=== PATIENT | female | born 1940 | race Caucasian/White ===

== ENCOUNTER → 2024-06-12 | Outpatient (CLI) | payer MEDICARE, BC, SELFPAY ==
[2024-06-12 14:53] LABS: Alanine Aminotransferase 13 U/L (10-49); Albumin, Serum 4.4 gm/dL (3.4-4.8); Albumin/Globulin Ratio 2.3 (1.2-2.2); Alkaline Phosphatase 56 U/L (46-116); Anion Gap 12 (7-16); Aspartate Amino Transferase 19 U/L (0-34); BUN/Creatinine Ratio 25 Ratio (12-20); Bilirubin,Total 1.4 mg/dL (0.3-1.2); Blood Urea Nitrogen 20 mg/dL (9-23); Calcium 9.8 mg/dL (8.3-10.6); Calcium (Corrected) 9.8 mg/dL (8.5-10.1); Carbon Dioxide 26.2 mMol/L (20.0-31.0); Chloride 103 mMol/L (98-107); Creatinine (Component) 0.8 mg/dL (0.6-1.3); Globulin 1.9 gm/dL (2.3-3.5); Glucose 116 mg/dL (74-106); Osmolality,Calculated 284 (275-295); Potassium 4.1 mMol/L (3.4-5.1); Sodium 141 mMol/L (136-145); Total Protein 6.3 gm/dL (5.7-8.2); eGFR > 60 See Note
== END | disposition home or self-care (01) ==
LOC: COPL 13:46
PROVIDERS: PCP Physician Assistant; Referring Provider Internal Medicine; Visit Provider Internal Medicine
DX: M81.0 Age-related osteoporosis without current pathological fracture (principal)
CPT/HCPCS: 36415; 80053

== ENCOUNTER → 2024-07-26 | Outpatient (CLI) | payer MEDICARE, BC, SELFPAY ==
[2024-07-26 10:35] LABS: Basophils % (Auto) 1 % (0-2.5); Eosinophils # (Auto) 0.1 Thou/mm3 (0.0-0.5); Eosinophils % (Auto) 2 % (0-10); Hematocrit 41.3 % (36.0-46.0); Hemoglobin 13.7 g/dL (12.0-16.0); Immature Granulocytes % (Auto) 0 % (0-0); Lymphocytes # (Auto) 0.8 Thou/mm3 (1.0-4.8); Lymphocytes % (Auto) 22 % (10-50); Mean Corpuscular HGB Conc 33.2 g/dl (31.0-37.0); Mean Corpuscular Hemoglobin 31.1 pg (25.0-35.0); Mean Corpuscular Volume 94 fL (80-100); Monocytes # (Auto) 0.5 Thou/mm3 (0.0-0.8); Monocytes % (Auto) 12 % (0-12); Neutrophils # (Auto) 2.4 Thou/mm3 (1.8-7.7); Neutrophils % (Auto) 63 % (37-80); Nucleated Red Blood Cell % 0 /100 WBC (0); Platelet Count 298 Thou/mm3 (140-440); RDW Standard Deviation 44.4 fL (36.4-46.3); White Blood Count 3.8 Thou/mm3 (3.6-11.0)
[2024-07-26 10:48] LABS: Alanine Aminotransferase 10 U/L (10-49); Albumin, Serum 4.2 gm/dL (3.4-4.8); Alkaline Phosphatase 54 U/L (46-116); Anion Gap 7 (7-16); Aspartate Amino Transferase 18 U/L (0-34); BUN/Creatinine Ratio 15 Ratio (12-20); Blood Urea Nitrogen 12 mg/dL (9-23); Carbon Dioxide 28.5 mMol/L (20.0-31.0); Cardiac Risk Estimate 2.6 RATIO (3.7-5.6); Chloride 105 mMol/L (98-107); Cholesterol 236 mg/dL (132-200); Creatinine (Component) 0.8 mg/dL (0.6-1.3); Globulin 2.1 gm/dL (2.3-3.5); Glucose 102 mg/dL (74-106); HDL Cholesterol 91 mg/dL (40-60); LDL Cholesterol,Calculated 133 mg/dL (0-130); Osmolality,Calculated 279 (275-295); Potassium 4.7 mMol/L (3.4-5.1); Sodium 140 mMol/L (136-145); Thyroid Stimulating Hormone 0.35 uIU/mL (0.55-4.78); Total Protein 6.3 gm/dL (5.7-8.2); Triglycerides 61 mg/dL (30-150); eGFR > 60 See Note
[2024-07-26 11:24] LABS: Glucose Estimated Average 120 mg/dL (80-131); Hemoglobin A1C 5.8 % Hgb (4.8-6.0)
== END | disposition home or self-care (01) ==
LOC: COPL 09:31
PROVIDERS: PCP Physician Assistant; Referring Provider Physician Assistant; Visit Provider Physician Assistant
DX: E78.5 Hyperlipidemia, unspecified (principal); I10 Essential (primary) hypertension; F03.90 Unspecified dementia, unspecified severity, without behavioral disturbance, psychotic disturbance, mood disturbance, and anxiety
CPT/HCPCS: 36415; 80053; 80061; 83036; 84443; 85025

== ENCOUNTER 2024-08-28 14:04 | Inpatient (IN) | payer MEDICARE, BC, SELFPAY ==
[2024-08-28] VITALS (9 sets, daily range): BP systolic 122–138; BP diastolic 73–83; PULSE 55–71; RESP 16–95; TEMP 36.6–37.1; O2SAT 90–96; BMI 23.2; BMI 24.2; BMI 23.1
--- NOTE | 2024-08-28 | XR_ITS ---
Examination: MRI of brain without intravenous contrast. MRI brain with intravenous contrast. Date and time of exam:August 28, 2024 1753 hours INDICATIONS: Onset altered mental status today, abnormal edema in the left temporal lobe on CT brain scan today Technique: Multiple axial and sagittal images of the brain to been obtained. Siemens high-resolution 1.52 Brianna short bore scanner utilized. Sagittal sections, T1 weighted images, TR 500, TE 14, are performed. Axial sections proton-density and T2-weighted images have been obtained. Inversion recovery axial images, TR 9260, TE 111, TR 2500. Diffusion weighted images, axial sections, TR 4800, TE 128, B value 1000. Axial sections, ADC map, TR 4800, TE 128. Axial and coronal images were also obtained post 10 cc gadolinium administered intravenously. Findings:: Enlargement of the sella turcica is not present. The optic chiasm and infundibular stalk are not remarkable. There is no localized enlargement of the medulla or stephanie. Fourth ventricle and cerebellar tonsils appear normal in position. No subacute area of hemorrhage density is seen. Fourth ventricle is midline. Mass in the cerebellopontine angle region is not evident. 7th and 8th nerve complexes exhibit symmetry Globes are symmetrical Orbital musculature including medial lateral rectus muscles do not exhibit abnormality Increased white matter signal is evident, marked focal edema in the left temporal lobe Effacement of the cortical sulcal markings is not identified. Mass effect upon the ventricular system is not identified. Diffusion-weighted images demonstrate no focus of restricted diffusion Contrast images demonstrate 11 mm enhancing nidus in the left temporal lobe surrounded by prominent edema Also 5 mm enhancing focus in the right cerebellar hemisphere axial image 7 Impression: Enhancing foci in the left temporal lobe and right cerebellar hemisphere most consistent with metastatic disease
--- NOTE | 2024-08-28 14:29 | XR_ITS ---
Examination: AP chest single view Technique one AP portable upright chest single view Date and time: August 28, 2024 1442 hours Comparison March 03, 2014 INDICATION: Chest pain shortness of breath today. FINDINGS: Subsegmental atelectasis left base Increased opacity left base retrocardiac Normal heart size IMPRESSION: Suspicious for early left base pneumonia
--- NOTE | 2024-08-28 14:29 | XR_ITS ---
Examination: CT brain head without contrast. 2-D sagittal coronal reconstructions Date and time of exam:August 28, 2024 1528 hours INDICATIONS: Altered mental status with seizures today CTDI: vol (mGy):43.7 DLP: (mGycm):856 Technique: Multiple CT axial sections of the brain have been obtained, 5 mm slice thickness. Contrast has not been administered. 2-D sagittal, coronal reconstructions have been obtained Low dose protocols were performed. One or more of the following dose reduction techniques were used; automated exposure control, adjustment of the mA and/or KV according to patient size, use of iterative reconstruction technique. Findings: Focal edema in the left temporal lobe No acute hemorrhage No midline shift Ventricles are not enlarged Cranial vault intact IMPRESSION: Large focal area of edema in the left temporal lobe, differential would favor brain neoplasm, infarct not excluded Consider brain MRI follow-up pre and postcontrast
[2024-08-28 15:09] LABS: Basophils % (Auto) 1 % (0-2.5); Eosinophils # (Auto) 0.1 Thou/mm3 (0.0-0.5); Eosinophils % (Auto) 1 % (0-10); Hematocrit 37.9 % (36.0-46.0); Hemoglobin 13.1 g/dL (12.0-16.0); Immature Granulocytes % (Auto) 0 % (0-0); Lymphocytes % (Auto) 21 % (10-50); Mean Corpuscular HGB Conc 34.6 g/dl (31.0-37.0); Mean Corpuscular Hemoglobin 31.8 pg (25.0-35.0); Mean Corpuscular Volume 92 fL (80-100); Monocytes # (Auto) 0.4 Thou/mm3 (0.0-0.8); Monocytes % (Auto) 8 % (0-12); Neutrophils # (Auto) 3.4 Thou/mm3 (1.8-7.7); Neutrophils % (Auto) 70 % (37-80); Nucleated Red Blood Cell % 0 /100 WBC (0); Platelet Count 241 Thou/mm3 (140-440); RDW Standard Deviation 42.9 fL (36.4-46.3); Red Blood Count 4.12 Miln/mm3 (4.00-5.20); White Blood Count 4.9 Thou/mm3 (3.6-11.0)
--- NOTE | 2024-08-28 15:20 | EDNOTE_ITS ---
ED Seizures RME/HPI General Chief Complaint: Seizure Stated Complaint: SEIZURE TODAY, HX OF SEIZURE Time Seen by Provider: 08/28/24 14:12 Arrival date/time: 08/28/24 14:04 RME / HPI RME / HPI Narrative: 83 year old female with a history of hypertension and dementia (on Donepezil 5 mg daily) was brought to the ED via EMS after a witnessed seizure at home. Per EMS, the patient's was present and described the event as the patient slumping over while sitting in a chair, followed by tonic-clonic movements lasting approximately 10?15 seconds. There was no reported incontinence or tongue biting. In the ED, the patient is alert but oriented only to self. She does not recall the event and responds, ?I don?t know,? when asked why she is in the hospital. She does report mild, non-radiating chest pain and general fatigue but denies shortness of breath, palpitations, headache, nausea, or focal weakness. No other complaints at this time. Related Data Home Medications ?Medication ?Instructions ?Recorded ?Confirmed benazepril 20 mg tablet 20 mg PO QDAY 05/13/1909/12 latanoprost 0.005 % eye drops 1 drp ophthalmic (eye) H S 09/13/19 09/13/19 timolol maleate 0.5 % eye drops 1 drp ophthalmic (eye) BID 09/13/19 09/13/19 Previous Rx's ?Medication ?Instructions ?Recorded ibuprofen 600 mg tablet 600 mg PO Q6H PRN Pain Scale 1-3 09/14/19 (Mild #20 tabs Allergies Allergy/AdvReac Type Severity Reaction Status Date / Time codeine Allergy Severe Hives Verified 08/28/24 14:07 Review of Systems Review of Systems Narrative Review of Systems: GEN: No fever, no chills, no weight loss, +feeling fatigued EYES: No discharge, no visual changes, no pain HEENT: No ear pain, no congestion, no sore throat PULM: No shortness of breath, no cough, no congestion CV: + chest pain, no dyspnea on exertion, no palpitations GI: No nausea, no vomiting, no diarrhea, no pain, no constipation : No frequency, no urgency, no dysuria MUSC/SKEL: No joint pain, no back pain SKIN: No rash NEURO: No weakness, no headache, +seizure per Past Medical History Past Medical History NEUROLOGIC: Positive Dementia CARDIAC: Positive Hypertension RESPIRATORY: Positive Bronchitis GASTROINTESTINAL: Positive Gastroesophageal Reflux Disease ENT: Positive Glaucoma Surgical History SURGICAL: Positive Abdominal Surgery and Hysterectomy Social History SMOKING STATUS: Never smoker ED Exam Narrative Physical exam: GENERAL APPEARANCE: appears drowsy but is answering questions appropriately, well-developed, well-nourished, no acute distress HEENT: Normocephalic, atraumatic; pupils equal, round, reactive to light; EOMI; mucous membranes pink, moist; oropharynx clear NECK: Supple LUNGS: CTABL; no wheezes, no rales, no rhonchi HEART: Regular rate, regular rhythm; normal S1, S2; no murmurs ABDOMEN: non distended; normal BS; soft, no tenderness, no guarding, no rebound; no masses, no organomegaly, no hernia BACK: no CVA tenderness EXTREMITIES: atraumatic; no edema NEUROLOGIC: appears drowsy but is answering questions appropriately, cranial nerves II-XII grossly intact; no focal sensory or motor deficits PSYCHIATRIC: appropriate mood and affect SKIN: warm, dry, normal color; no rashes Course Quality Measures none Orders Category Date Time Status Athletic Team Physician NOW Care 08/28/24 14:29 Active EKG (ED ONLY) *Do not use* NOW Care 08/28/24 14:29 Completed MRI Screening NOW Care 08/28/24 15:[address] head/brain wo con Stat Exams 08/28/24 14:29 Completed EKG (ED Only) Stat Exams 08/28/24 14:29 Ordered MR head/brain wo/w con Stat Exams 08/28/24 Ordered XR chest 1V portable Stat Exams 08/28/24 14:29 Completed Alcohol, Blood Medical Stat Lab 08/28/24 14:56 Completed B-Type Natriuretic Peptide Stat Lab 08/28/24 14:56 Completed CBC Stat Lab 08/28/24 14:56 Completed Comprehensive Metabolic Panel Stat Lab 08/28/24 14:56 Completed Drug Screen,Urine Stat Lab 08/28/24 14:30 Ordered Lipase Stat Lab 08/28/24 14:56 Completed Magnesium Stat Lab 08/28/24 14:56 Completed Partial Thromboplastin Time Stat Lab 08/28/24 14:56 Completed Prothrombin Time with INR Stat Lab 08/28/24 14:56 Completed Troponin I Stat Lab 08/28/24 14:56 Completed UA, C/S IF [Urinalysis, C/S if Indicated] Stat Lab 08/28/24 14:30 Ordered Vital Signs Vital signs: Vital Signs Temperature 98.2 F 08/28/24 14:13 Pulse Rate 71 08/28/24 14:13 Respiratory Rate 18 08/28/24 14:13 Blood Pressure 122/80 08/28/24 14:13 Pulse Oximetry (%) 90 L 08/28/24 14:13 Oxygen Delivery Method Nasal Cannula 08/28/24 14:13 Oxygen Flow Rate 2 08/28/24 14:13 Seizure MDM Narrative MDM Narrative:: IDalia am scribing for and in the presence of Dr. Cherry. Patient data External records reviewed:: [facility] previous records (I reviewed ED visit on 02/12/2023 ) and EMS form Clinical information provided by:: patient, EMS and spouse Social determinants that could affect healthcare access:: none Patient has the following chronic illnesses:: dementia, hypertension How is presenting disease/condition affected by chronic disease/condition?: exacerbated by Evaluation data The following diagnostics were reviewed and interpreted by me:: lab results and radiology exam(s) Lab and/or radiology exams considered but not ordered:: None Interpretation Summary: Ordering Physician: Nelsy Cherry MD Date of Service: 08/28/24 Procedure(s): XR chest 1V portable Accession Number(s): [id number] cc: Ishan Issa MD; Nelsy Cherry MD~ Examination: AP chest single view Technique one AP portable upright chest single view Date and time: August 28, 2024 1442 hours Comparison March 03, 2014 INDICATION: Chest pain shortness of breath today. FINDINGS: Subsegmental atelectasis left base Increased opacity left base retrocardiac Normal heart size IMPRESSION: Suspicious for early left base pneumonia Dictated By: Ishan Issa MD Signed By: <Electronically signed by Ishan Issa MD in OV> 08/28/24 1508 Ordering Physician: Nelsy Cherry MD Date of Service: 08/28/24 Procedure(s): CT head/brain wo con Accession Number(s): [id number] cc: Ishan Issa MD; Nelsy Cherry MD; Nilda Goss PA-C~ Examination: CT brain head without contrast. 2-D sagittal coronal reconstructions Date and time of exam:August 28, 2024 1528 hours INDICATIONS: Altered mental status with seizures today CTDI: vol (mGy):43.7 DLP: (mGycm):856 Technique: Multiple CT axial sections of the brain have been obtained, 5 mm slice thickness. Contrast has not been administered. 2-D sagittal, coronal reconstructions have been obtained Low dose protocols were performed. One or more of the following dose reduction techniques were used; automated exposure control, adjustment of the mA and/or KV according to patient size, use of iterative reconstruction technique. Findings: Focal edema in the left temporal lobe No acute hemorrhage No midline shift Ventricles are not enlarged Cranial vault intact IMPRESSION: Large focal area of edema in the left temporal lobe, differential would favor brain neoplasm, infarct not excluded Consider brain MRI follow-up pre and postcontrast Dictated By: Ishan Issa MD Signed By: <Electronically signed by Ishan Issa MD in OV> 08/28/24 1545 Medications / Prescriptions Medications or Prescriptions considered but not ordered:: None Medication administrations:: See above Consultations Consultation(s) initiated? (list below): Yes Consultation #1 (Physician, Specialty, Details): I spoke with resident working with Dr. Hastings regarding admission. Discussed patients PMHx, HPI, ED course, exam findings, labs, and radiology results. Diagnosis Seizure Differential Diagnosis: intractable seizure disorder, focal seizure, new onset seizure and epileptic seizure Most likely diagnosis given after review of the tests above:: Seizure Brain lesion Admission Indicated Admission indicated?: indicated Admission Request Was there a request for admission?: Yes Admission Attestation Admission request attestation: Discussed case with [] from Hospitalist service regarding admission. Discussed patients ED course, exam findings, labs, and radiology results. The Hospitalist [agrees,declines] to accept the patient for admission. Disposition Plan Disposition Plan: Admit Discharge Plan Plan Patient Disposition: Admit Acute Care w/in Hospital Prescriptions/Referrals Prescriptions/Med Rec: No Action benazepril 20 mg Tablet 20 mg PO QDAY latanoprost 0.005 % drops 1 drp OPHTHALMIC (EYE) HS Patient Comments: INSTILL 1 DROP INTO EACH EYE AT BEDTIME Rx Instructions: both eyes. timolol maleate 0.5 % drops 1 drp OPHTHALMIC (EYE) BID Patient Comments: INSTILL 1 DROP INTO EACH EYE TWICE DAILY Rx Instructions: both eyes. ibuprofen 600 mg Tablet 600 mg PO Q6H PRN (Reason: Pain Scale 1-3 (Mild) Qty: 20 0RF Referrals: Nilda Goss PA-C [Primary Care Provider] - In 1 week Problem List Clinical Impression: Seizure, Brain lesion Patient/Caregiver Discharge Instructions Print Language: Senegalese Stand Alone Forms: [employer] Award Info., Patient Portal Info Letter
[2024-08-28 15:31] LABS: Alanine Aminotransferase 12 U/L (10-49); Albumin, Serum 4.1 gm/dL (3.4-4.8); Albumin/Globulin Ratio 2.2 (1.2-2.2); Alcohol, Blood Medical < 10.0 mg/dL (0-10.0); Alkaline Phosphatase 44 U/L (46-116); Anion Gap 9 (7-16); Aspartate Amino Transferase 18 U/L (0-34); BUN/Creatinine Ratio 19 Ratio (12-20); Bilirubin,Total 1.2 mg/dL (0.3-1.2); Blood Urea Nitrogen 15 mg/dL (9-23); Calcium 8.7 mg/dL (8.3-10.6); Calcium (Corrected) 8.7 mg/dL (8.5-10.1); Carbon Dioxide 26.5 mMol/L (20.0-31.0); Chloride 102 mMol/L (98-107); Creatinine (Component) 0.8 mg/dL (0.6-1.3); Globulin 1.9 gm/dL (2.3-3.5); Glucose 164 mg/dL (74-106); Lipase 27 U/L (12-53); Magnesium 1.9 mg/dL (1.6-2.6); Osmolality,Calculated 278 (275-295); Potassium 3.9 mMol/L (3.4-5.1); Sodium 137 mMol/L (136-145); Troponin I < 0.020 ng/mL (0.0-0.045); eGFR > 60 See Note
[2024-08-28 15:32] LABS: Partial Thromboplastin Time 24.8 Seconds (22.0-36.0)
[2024-08-28 15:33] LABS: B-Type Natriuretic Peptide 83 pg/mL (0-100)
--- NOTE | 2024-08-28 18:31 | PD.RESEVENT ---
Documentation for date of: 08/28/24 Event Note Event Note: Allyson Devries is an 83-year-old female with a past medical history of dementia, glaucoma who presented to the ED on 08/28 after witnessed seizure. Went to evaluate patient but was an MRI but apparently has been witnessed patient's lump over in a chair followed by tonic-clonic movements lasted for 10 to 15 seconds. Per chart review, patient may have had postictal state does not recall the incident. Initially on 2 L nasal cannula saturating 90% but otherwise vital signs stable no longer on nasal cannula. CBC unremarkable, CHEM panel largely unremarkable. However, CT head showed a large focal area of edema in the left temporal lobe that was not present on brain MRI and March 2023. Given the brain neoplasm is on the differential, spoke to ED attending and requested neurology consultation prior to admission and to obtain MRI. Will sign out to oncoming night team for further evaluation regarding whether or not admission versus transfer is warranted. ----- Plan discussed with attending physician Dr. Darling Davis MD PGY-1 Internal Medicine
--- NOTE | 2024-08-28 18:37 | PC.NURSE ---
Pt in MRI
--- NOTE | 2024-08-28 19:08 | PD.RESHP ---
Documentation for date of: 08/28/24 [facility] History of Present Illness History of present illness: The patient is an 83-year-old female with a past medical history of hypertension and dementia, was brought to the ER by her after she had an episode of generalized tonic-clonic seizure while she was a passenger in the car. The brought her to the emergency room, the patient was still drowsy, postictal. At the time of evaluation, the patient is A and O x 3 complaining of a mild headache, most of the history of the event was provided by her . Reported that she had a single episode of generalized tonic-clonic seizure in 2022, which occurred after she had just started a new medication for dementia. Patient was also seen by neurologist Dr Rubin in her office at that time, had a brain MRI which was reportedly negative, she was started on a medication for seizure, but patient stopped taking the medication after single dose due to adverse events. Now at the time of presentation, reported they were driving back home, when her whole body stiffened up and started having jerking tonic-clonic movements, denied hitting her head, denied urinary fecal incontinence, or tongue bite, denied any preceding fever, reported history of migraines, but has not required medications for many years. Reported some haziness in the vision from her left eye following cataract surgery. Past medical history: Hypertension, dementia, remote history of migraines not required any medications for years. Past Surgical history ; Cataract surgery, hysterectomy Social history: Denies smoking Review of Systems Review of Systems Systems Reviewed: All systems reviewed, normal except as documented Past Medical History Past Medical History NEUROLOGIC: Positive Dementia; Negative Seizures CARDIAC: Positive Hypertension; Negative Congestive Heart Failure RESPIRATORY: Positive Respiratory Disorders (COPD) and Bronchitis; Negative Chronic Obstructive Pulmonary Disease (COPD) GASTROINTESTINAL: Positive Gastroesophageal Reflux Disease GENITOURINARY: Negative Renal Disease ENT: Positive Glaucoma ENDOCRINE: Negative Diabetes Mellitus Type 1 or Diabetes Mellitus Type 2 OTHER HISTORY: Negative Blood Transfusions, Blood Transfusion Reaction or Anesthesia Reactions Surgical History SURGICAL: Positive Abdominal Surgery and Hysterectomy Social History SMOKING STATUS: Never smoker Exam Vital Signs Temp Pulse Resp BP Pulse Ox O2 Del Method O2 Flow Rate 97.8 F 67 16 134/76 H 96 Room Air 2 08/28/24 16:25 08/28/24 16:25 08/28/24 16:25 08/28/24 16:25 08/28/24 16:25 08/28/24 16:25 08/28/24 14:13 Narrative Exam General: AOx3, cooperative Skin: Intact, no cyanosis or edema noted. HEENT: Atraumatic/normocephalic, MARY, neck supple Heart: RRR, S1 and S2 without clicks or murmurs Lungs: Clear on auscultation bilaterally, no difficulty breathing Abdomen: Soft, nontender. Bowel sounds present . Vascular: Peripheral pulses palpable Neuro: No focal neurological deficits noted. Results: Labs 08/28/24 14:56 08/28/24 14:56 Labs: Short CBC 08/28/24 Range/Units 14:56 WBC 4.9 (3.6-11.0) Thou/mm3 Hgb 13.1 (12.0-16.0) g/dL Hct 37.9 (36.0-46.0) % Plt Count 241 D (140-440) Thou/mm3 BMP 08/28/24 14:56 Sodium 137 Potassium 3.9 Chloride 102 Carbon Dioxide 26.5 BUN 15 Creatinine 0.8 Glucose 164 H Calcium 8.7 Cardiac Enzymes 08/28/24 Range/Units 14:56 Troponin I < 0.020 (0.0-0.045) ng/mL Liver Function 08/28/24 Range/Units 14:56 Total Bilirubin 1.2 (0.3-1.2) mg/dL AST 18 (0-34) U/L ALT 12 (10-49) U/L Alkaline Phosphatase 44 L (46-116) U/L Albumin 4.1 (3.4-4.8) gm/dL Quality Measures Quality Measures none Advance care planning discussed with:: patient Medications Home Medications and Allergies Home Medications ?Medication ?Instructions ?Recorded ?Confirmed ?Type benazepril 20 mg tablet 20 mg PO QDAY 05/13/19 09/13/19 History latanoprost 0.005 % eye drops 1 drp ophthalmic (eye) HS 09/13/19 09/13/19 History timolol maleate 0.5 % eye drops 1 drp ophthalmic (eye) BID 09/13/19 09/13/19 History Allergies Allergy/AdvReac Type Severity Reaction Status Date / Time codeine Allergy Severe Hives Verified 08/28/24 14:07 Assessment & Plan Plan Patient is an 83-year-old female past medical history dementia and hypertension who presented to the ER following a generalized tonic-clonic seizure. Brain imaging concerning for cerebral edema and brain mass. #Generalized tonic-clonic seizure #Postictal state #Possible brain neoplasm versus metastatic disease Patient reported a single prior episode of seizure in 2022 and was evaluated by neurologist in 2022, was prescribed a medication but patient stopped taking it because of her symptoms for symptoms. Patient had a prior brain MRI which was negative for brain mass, in the ER CT head was done which showed large focal area of edema in left temporal lobe, brain MRI showed enhancing foci in the left temporal lobe and right cerebral hemisphere most consistent with metastatic disease. - Neurology Recommendations pending - Keppra 500mg BID - Dexamethasone 10mg x1 , later 4mg q 6hr for cereberal edema - seizure precautions in place - Ativan 2mg prn for seizures Plan of care discussed with attending dr Burke Diamond pgy2 Attending Provider Attestation/Addendum 83-year-old female with dementia, hypertension was brought to the ER for jerking tonic-clonic movements inside her car. The patient had a CT scan that showed focal edema of the left temporal lobe. Neoplasm or infarction not excluded. Patient is being admitted for further treatment. Per IM resident Dr. Petty spoke with Dr. Rubin who recommended to start Keppra and steroid treatment.
[2024-08-28 19:57] LABS: Collection Type, Urine Clean Catch; RBC,Urine 0 /hpf (0-3); WBC,Urine 0 /hpf (0-5)
[2024-08-28 20:09] LABS: Bacteria,Urine Rare; Bilirubin,Urine Negative (Negative); Blood,Urine Negative (Negative); Clarity,Urine Turbid (Clear/Hazy); Color,Urine Lt-Yellow (Lt Yel-Yel); Culture Indicated,Urine Not Indicated; Glucose, Urine Negative (Negative); Ketones,Urine Negative (Negative); Leukocyte Esterase,Urine Negative (Negative); Nitrite,Urine Negative (Negative); PH,Urine 6.5 (5.0-7.0); Protein,Urine Negative (Neg - Trace); Specific Gravity,Urine 1.017 (1.001-1.035); Squamous Epithelial Cell,Urine < 1 /hpf (0-5); Urobilinogen,Urine Negative mg/dL (0.0-1.0)
[2024-08-28 20:33] LABS: Amphetamine/Methamp Scrn,U Negative (Negative); Barbiturate Screen,Urine Negative (Negative); Benzodiazepines Screen,Urine Negative (Negative); Benzoylecgonine Screen, Ur Negative (Negative); Fentanyl Screen,Urine Negative (Negative); Opiate Screen,Urine Negative (Negative); THC Screen,Urine Negative (Negative)
--- NOTE | 2024-08-28 20:35 | PC.NURSE ---
PT AND WANTING TO KO WWHY THYE ARE GAVING TO STAY CALLED DR. DHALIWAL TO COME TALK WITH PT.
--- NOTE | 2024-08-28 20:36 | PC.NURSE ---
ADVISED THAT I NEEDED TO SWAB FOR COVID IN THE NOSE PT REFUSED AND STATED NO THAT WE CAN SWAB SALIVA BUT NOT NOSE. ADVISED THAT I WILL LET THE CHARGE AWARE.
--- NOTE | 2024-08-28 21:12 | PC.NURSE ---
CALLED TO GIVE REPORT NURSE PASSING MEDS WILL CALL BACK
[2024-08-28] MEDS: levETIRAcetam INJ 100 MG/ML VIAL 5ML 500 MG IVP (22:19)
[2024-08-28] MEDS: DEXAMETHASONE SOD PHOS INJ 4 MG/ML VIAL 10 MG IVP (22:20)
[2024-08-28] MEDS: HEPARIN SOD INJ 5000 UNIT/ML VIAL SC (22:29)
[2024-08-29] VITALS (10 sets, daily range): BP systolic 95–126; BP diastolic 55–78; PULSE 58–81; RESP 16–97; TEMP 36.1–37.5; O2SAT 93–98
--- NOTE | 2024-08-29 04:53 | PC.NURSE ---
pt's HR went down to 50, MD was made aware, no new orders for pt at this time. Pt lying down in bed, no complains of chest pain or discomfort at this time.
[2024-08-29] MEDS: DEXAMETHASONE SOD PHOS INJ 4 MG/ML VIAL IVP ×3 (05:22→18:02)
[2024-08-29] MEDS: HEPARIN SOD INJ 5000 UNIT/ML VIAL SC (05:23)
[2024-08-29 06:16] LABS: Prothrombin Time 10.8 Seconds (9.0-12.2)
[2024-08-29 06:18] LABS: Basophils % (Auto) 0 % (0-2.5); Eosinophils % (Auto) 0 % (0-10); Hematocrit 41.3 % (36.0-46.0); Hemoglobin 14.1 g/dL (12.0-16.0); Immature Granulocytes % (Auto) 0 % (0-0); Immature Granulocytes Auto 0.01 Thou/mm3 (0.00-0.00); Lymphocytes # (Auto) 0.5 Thou/mm3 (1.0-4.8); Lymphocytes % (Auto) 10 % (10-50); Mean Corpuscular HGB Conc 34.1 g/dl (31.0-37.0); Mean Corpuscular Hemoglobin 31.8 pg (25.0-35.0); Mean Corpuscular Volume 93 fL (80-100); Monocytes # (Auto) 0.1 Thou/mm3 (0.0-0.8); Monocytes % (Auto) 2 % (0-12); Neutrophils # (Auto) 4.1 Thou/mm3 (1.8-7.7); Neutrophils % (Auto) 88 % (37-80); Nucleated Red Blood Cell % 0 /100 WBC (0); Platelet Count 277 Thou/mm3 (140-440); RDW Standard Deviation 43.8 fL (36.4-46.3); Red Blood Count 4.43 Miln/mm3 (4.00-5.20); White Blood Count 4.7 Thou/mm3 (3.6-11.0)
[2024-08-29 06:33] LABS: Alanine Aminotransferase 12 U/L (10-49); Alkaline Phosphatase 48 U/L (46-116); Anion Gap 9 (7-16); Aspartate Amino Transferase 17 U/L (0-34); BUN/Creatinine Ratio 18 Ratio (12-20); Bilirubin,Direct 0.3 mg/dL (0.0-0.3); Bilirubin,Total 1.2 mg/dL (0.3-1.2); Blood Urea Nitrogen 11 mg/dL (9-23); Calcium 8.5 mg/dL (8.3-10.6); Carbon Dioxide 25.9 mMol/L (20.0-31.0); Cardiac Risk Estimate 2.8 RATIO (3.7-5.6); Chloride 104 mMol/L (98-107); Cholesterol 233 mg/dL (132-200); Creatinine (Component) 0.6 mg/dL (0.6-1.3); Estimated Creatinine Clearance 54.5 mL/min (>60); Glucose 147 mg/dL (74-106); HDL Cholesterol 83 mg/dL (40-60); LDL Cholesterol,Calculated 137 mg/dL (0-130); Magnesium 2.1 mg/dL (1.6-2.6); Osmolality,Calculated 279 (275-295); Phosphorous 3.3 mg/dL (2.4-5.1); Potassium 4.1 mMol/L (3.4-5.1); Sodium 139 mMol/L (136-145); Thyroid Stimulating Hormone 0.32 uIU/mL (0.55-4.78); Total Protein 6.1 gm/dL (5.7-8.2); Triglycerides 65 mg/dL (30-150); eGFR > 60 See Note
--- NOTE | 2024-08-29 06:37 | PC.NURSE ---
Pt refused SCDs, Pt was educated about the risks for developing a DVT but still refused. Pt stated that she is ambulatory and that she wants to be able to walk around the unit without being attached to this machine.
--- NOTE | 2024-08-29 08:02 | ESCONSULT_ITS ---
HPI Data of Consult Consult date: 08/29/24 Requesting Physician: Miley Kim DO Primary Care Provider: Nilda Goss PA-C Consult Narrative Reason for consult: Suspected malignancy involving brain History of present illness: Patient an 83-year-old lady admitted with seizure activity while being a passenger in a car and brought to the ER. CT scan and MRI with and without contrast on 08/28/2024 revealed enhancing foci in the left temporal lobe and right cerebellar hemisphere most consistent with met disease. Patient placed on IV Decadron and anticonvulsants and symptoms have stabilized. Patient now referred for oncological consultation. cc:: cc: Miley Kim DO Past Medical History Social History SOCIAL: Denies smoking history Past Medical History Comments PMH COMMENT: Hypertension history of migraines cataract surgery hysterectomy Meds Home Medications and Allergies Home Medications ?Medication ?Instructions ?Recorded ?Confirmed ?Type benazepril 20 mg tablet 20 mg PO QDAY 05/13/1909/12 History latanoprost 0.005 % eye drops 1 drp ophthalmic (eye) H S 09/13/19 09/13/19 History timolol maleate 0.5 % eye drops 1 drp ophthalmic (eye) BID 09/13/19 09/13/19 History Allergies Allergy/AdvReac Type Severity Reaction Status Date / Time codeine Allergy Severe Hives Verified 08/28/24 14:07 Exam Vital Signs Temp Pulse Resp BP Pulse Ox O2 Del Method O2 Flow Rate 99.5 F 60 20 118/61 93 L Room Air 2 08/29/24 04:00 08/29/24 04:00 08/29/24 04:00 08/29/24 04:00 08/29/24 04:00 08/29/24 04:00 08/28/24 14:13 Narrative Exam Appearing stable and comfortable and answering questions appropriately Results Labs 08/29/24 05:20 08/29/24 05:20 Labs: Short CBC 08/28/24 08/29/24 Range/Units 14:56 05:20 WBC 4.9 4.7 (3.6-11.0) Thou/mm3 Hgb 13.1 14.1 (12.0-16.0) g/dL Hct 37.9 41.3 (36.0-46.0) % Plt Count 241 D 277 D (140-440) Thou/mm3 BMP 08/28/24 08/29/24 14:56 05:20 Sodium 137 139 Potassium 3.9 4.1 Chloride 102 104 Carbon Dioxide 26.5 25.9 BUN 15 11 Creatinine 0.8 0.6 Glucose 164 H 147 H Calcium 8.7 8.5 Cardiac Enzymes 08/28/24 Range/Units 14:56 Troponin I < 0.020 (0.0-0.045) ng/mL Liver Function 08/28/24 08/29/24 Range/Units 14:56 05:20 Total Bilirubin 1.2 1.2 (0.3-1.2) mg/dL Direct Bilirubin 0.3 (0.0-0.3) mg/dL AST 18 17 (0-34) U/L ALT 12 12 (10-49) U/L Alkaline Phosphatase 44 L 48 (46-116) U/L Albumin 4.1 4.0 (3.4-4.8) gm/dL Urine 08/28/24 08/28/24 08/28/24 Range/Units 19:48 19:48 19:48 Urine Color Lt-Yellow Cancelled (Lt Yel-Yel) Urine Clarity Turbid A Cancelled (Clear/Hazy) Urine pH 6.5 (5.0-7.0) Ur Specific [place] (1.001-1.035) Urine Protein (Neg - Trace) Urine Glucose (UA) (Negative) 08/28/24 08/28/24 08/28/24 Range/Units 19:48 19:48 19:48 Urine Color (Lt Yel-Yel) Urine Clarity (Clear/Hazy) Urine pH Cancelled (5.0-7.0) Ur Specific [place] 1.017 Cancelled (1.001-1.035) Urine Protein Negative Cancelled (Neg - Trace) Urine Glucose (UA) Negative (Negative) 08/28/24 Range/Units 19:48 Urine Color (Lt Yel-Yel) Urine Clarity (Clear/Hazy) Urine pH (5.0-7.0) Ur Specific [place] (1.001-1.035) Urine Protein (Neg - Trace) Urine Glucose (UA) Cancelled (Negative) Assessment and Plan Additional Assessment & Plan Additional Plan: 1. 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 Appears stable this a.m. 2. Need to check for primary site for malignancy. Would order CT scan chest abdomen pelvis with contrast. 3. Order tumor markers CEA CA 15-3 CA 19?9 CA125 4. Would keep her on the IV Decadron and antiseizure medications. Will follow. Thank you for allowing me to evaluate this patient.
--- NOTE | 2024-08-29 08:14 | XR_ITS ---
Examination: CT chest with intravenous contrast CT abdomen with intravenous contrast CT pelvis with intravenous contrast 2-D coronal and sagittal reconstructions Time of exam: August 29, 2024 1107 hours INDICATIONS: Metastatic brain lesions on MRI brain August 28, 2024, staging CTDI: vol (mGy) : 5.11 DLP: (mGycm): 352 Technique: Multiple axial images of the chest, abdomen and pelvis with intravenous contrast, 3.0 mm slice thickness. Images obtained post intravenous injection Isovue 370 60 cc. 2-D sagittal and coronal reconstructions. Low dose protocols were performed. One or more of the following dose reduction techniques were used; automated exposure control, adjustment of the mA and/or KV according to patient size, use of iterative reconstruction technique. Findings: Small left thyroid nodules No thoracic degenerative aneurysm dilatation No pulmonary artery filling defects No paratracheal tracheobronchial or bronchopulmonary adenopathy 5 cm pulmonary mass spiculated margins left lower lobe axial image 196 14 mm pulmonary nodule left upper lobe image 44 5 mm pulmonary nodule left lower lobe image 213 COPD No focal liver or splenic lesions No gallstones Prominent common hepatic duct 11 mm No pancreatic mass Aorta normal size Left common iliac lymphadenopathy, the largest lymph node 10 mm, 15 mm No bowel obstruction Urinary bladder intact No pelvic mass Severe osteopenia IMPRESSION: 5 cm pulmonary mass spiculated margins left lower lobe most consistent with lung carcinoma, with metastatic pulmonary nodules Enlarged common hepatic duct, recommend hepatobiliary sonography follow-up Left common iliac lymphadenopathy, likely metastatic
[2024-08-29] MEDS: FAMOTIDINE INJ 10 MG/ML VIAL 2 ML 20 MG IVP (08:44)
[2024-08-29] MEDS: levETIRAcetam INJ 100 MG/ML VIAL 5ML 500 MG IVP ×2 (08:44→20:45)
[2024-08-29 09:30] LABS: Free T4 (Free Thyroxine) 1.37 ng/dL (0.89-1.76)
[2024-08-29 09:46] LABS: Carcinoembryonic Antigen 39.6 ng/mL (0.0-5.0)
--- NOTE | 2024-08-29 10:13 | PC.SS ---
Initial assessment: this is 83 year old female admitted for brain mass. Patient appears to be alert and oriented. Patient confirmed demographic information, reports living with spouse, Mireille. Patient reports being independent with ADL's. Patient denies use of DME. Patient assigned her , Mireille as her emergency contact. Patient's PCP is Nilda Goss. Pharmacy of choice is [facility] on [address]. Patient informs she will discharge home and spouse is able to transport home when medically cleared. No needs identified at this time. D/c plan: home Next of kin: spouse, Mireille
--- NOTE | 2024-08-29 10:58 | PC.NURSE ---
Patient transferred to CT via rney, stable condition.
--- NOTE | 2024-08-29 11:15 | PC.NURSE ---
Patient back to room from CT via w/c in stable condition.
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
--- NOTE | 2024-08-29 15:30 | ESCONSULT_ITS ---
HPI Data of Consult Requesting Physician: Miley Kim DO Admitting Provider: Syd Turk MD Attending Provider: Miley Kim DO Primary Care Provider: Nilda Goss PA-C Consult Narrative Reason for consult: episode of seizures History of present illness: The patient is a 83-year-old female with a previous medical history of hypertension and dementia who was brought in to the ED on 08/28/2024 by her after having a generalized tonic-clonic seizure lasting 15-20 seconds when he was driving with her after dinner. The patient has a history of a seizure in 2022, MRI without contrast back then was negative for masses or stroke, showed prominent chronic microvascular white matter changes. According to the , patient has been having problems with her memory since 2019 and associates the beginning of the symptoms with rattlesnake bite. He reports that she was prescribed a medication for dementia by her PCP Nilda Goss. He reports that that after taking that medication patient had a seizure in 2022. In the ED she was hemodynamically stable, WBC count 4.7, hemoglobin 14.1, INR 1.0 chemistry panel remarkable for hyperlipidemia UA negative for signs of infection, U tox negative. Head CT showed large focal area of vasogenic edema in the left temporal lobe, differential would favor brain neoplasm. Brain MRI showed contrast-enhancing lesions in the left temporal lobe and right cerebellar hemisphere, consistent with metastatic disease. Abdomen pelvis chest CT showed multiple nodules in the left lung consistent with lung carcinoma, left common iliac lymphadenopathy, most likely metastatic. CEA 39.6, CA 15-3 in the normal range, CA 19?9 pending, CA125 normal range. Patient was started on levetiracetam and dexamethasone. Neurology was consulted for provoked seizure. Social history: lives with her , drives a car, ambulates independently,drinks a glass of wine periodically, former smoker, reports quit smoking 30 years ago Surgical history: bilateral knee replacement, hysterectomy Allergies: does not remember, per chart review - leila cc:: cc: Miley Kim DO Review of Systems Review of Systems Systems Reviewed: All systems reviewed, normal except as documented Past Medical History Past Medical History NEUROLOGIC: Positive Dementia and Seizures CARDIAC: Positive Hypertension; Negative Congestive Heart Failure RESPIRATORY: Positive Respiratory Disorders (COPD) and Bronchitis; Negative Chronic Obstructive Pulmonary Disease (COPD) GASTROINTESTINAL: Positive Gastroesophageal Reflux Disease GENITOURINARY: Negative Renal Disease ENT: Positive Glaucoma ENDOCRINE: Negative Diabetes Mellitus Type 1 or Diabetes Mellitus Type 2 OTHER HISTORY: Negative Blood Transfusions, Blood Transfusion Reaction or Anesthesia Reactions Surgical History SURGICAL: Positive Abdominal Surgery and Hysterectomy Social History SMOKING STATUS: Never smoker Exam Vital Signs Temp Pulse Resp BP Pulse Ox O2 Del Method O2 Flow Rate 97.9 F 73 16 95/61 93 L Room Air 2 08/29/24 12:00 08/29/24 13:22 08/29/24 13:22 08/29/24 12:00 08/29/24 12:00 08/29/24 12:00 08/28/24 14:13 Narrative Exam Gen: Well-developed and well-nourished. HEENT: NCAT, PERRLA, EOMI, MMM, anicteric conjunctivae. CVS: normal S1 and S2. RRR. No M/R/G. Resp: CTA B/L. No rhonchi, rales, crackles or wheezing. Abd: soft, non-tender, non-distended. BS+ in all 4 quadrants. MSK: Good ROM in BUE & BLE. No edema or rash. Neuro: CN II-XII grossly intact. Strength 5/5 in BUE & BLE. Alert and oriented x1 (does not reports time correctly and location). Psych: appropriate mood and affect. Results Labs 08/30/24 04:38 08/30/24 04:38 Labs: Short CBC 08/29/24 Range/Units 05:20 WBC 4.7 (3.6-11.0) Thou/mm3 Hgb 14.1 (12.0-16.0) g/dL Hct 41.3 (36.0-46.0) % Plt Count 277 D (140-440) Thou/mm3 BMP 08/28/24 08/29/24 14:56 05:20 Sodium 137 139 Potassium 3.9 4.1 Chloride 102 104 Carbon Dioxide 26.5 25.9 BUN 15 11 Creatinine 0.8 0.6 Glucose 164 H 147 H Calcium 8.7 8.5 Cardiac Enzymes 08/28/24 Range/Units 14:56 Troponin I < 0.020 (0.0-0.045) ng/mL Liver Function 08/28/24 08/29/24 Range/Units 14:56 05:20 Total Bilirubin 1.2 1.2 (0.3-1.2) mg/dL Direct Bilirubin 0.3 (0.0-0.3) mg/dL AST 18 17 (0-34) U/L ALT 12 12 (10-49) U/L Alkaline Phosphatase 44 L 48 (46-116) U/L Albumin 4.1 4.0 (3.4-4.8) gm/dL Urine 08/28/24 08/28/24 08/28/24 Range/Units 19:48 19:48 19:48 Urine Color Lt-Yellow Cancelled (Lt Yel-Yel) Urine Clarity Turbid A Cancelled (Clear/Hazy) Urine pH 6.5 (5.0-7.0) Ur Specific [place] (1.001-1.035) Urine Protein (Neg - Trace) Urine Glucose (UA) (Negative) 08/28/24 08/28/24 08/28/24 Range/Units 19:48 19:48 19:48 Urine Color (Lt Yel-Yel) Urine Clarity (Clear/Hazy) Urine pH Cancelled (5.0-7.0) Ur Specific [place] 1.017 Cancelled (1.001-1.035) Urine Protein Negative Cancelled (Neg - Trace) Urine Glucose (UA) Negative (Negative) 08/28/24 Range/Units 19:48 Urine Color (Lt Yel-Yel) Urine Clarity (Clear/Hazy) Urine pH (5.0-7.0) Ur Specific [place] (1.001-1.035) Urine Protein (Neg - Trace) Urine Glucose (UA) Cancelled (Negative) Quality Measures Quality Measures VTE prophylaxis Advance care planning discussed with:: other Medications Home Medications and Allergies Home Medications ?Medication ?Instructions ?Recorded ?Confirmed ?Type benazepril 20 mg tablet 20 mg PO QDAY 05/13/1908/29 History latanoprost 0.005 % eye drops 1 drp ophthalmic (eye) H S 09/13/19 08/29/24 History brimonidine 0.2 %-timolol 0.5 % 1 drp ophthalmic (eye) Q12H 08/29/24 08/29/24 History eye drops Allergies Allergy/AdvReac Type Severity Reaction Status Date / Time codeine Allergy Severe Hives Verified 08/28/24 14:07 Visit Medications Acetaminophen (Acetaminophen 325 Mg Tablet) 650 mg PO Q6H PRN PRN Reason: PAIN 1-3 OR FEVER > 101 Stop: 09/27/24 19:05 Dexamethasone Sodium Phosphate (Dexamethasone Sod Phos Inj 4 Mg/Ml Vial) 4 mg IVP Q6HR AMADA; Protocol Stop: 09/28/24 05:59 Last Admin: 08/29/24 11:27 Dose: 4 mg Famotidine (Famotidine Inj 10 Mg/Ml Vial 2 Ml) 20 mg IVP DAILY [facility] Stop: 09/28/24 08:59 Last Admin: 08/29/24 08:44 Dose: 20 mg Heparin Sodium (Porcine) (Heparin Sod Inj 5000 Unit/Ml Vial) 5,000 unit SC Q8HR AMADA Stop: 09/11/24 21:59 Last Admin: 08/29/24 13:40 Dose: Not Given Levetiracetam (Levetiracetam Inj 100 Mg/Ml Vial 5ml) 500 mg IVP Q12HR AMADA Stop: 09/27/24 21:24 Last Admin: 08/29/24 08:44 Dose: 500 mg Lorazepam (Lorazepam 2 Mg/Ml Vial) 2 mg IVP Q15MIN PRN PRN Reason: SEIZURES Stop: 09/02/24 21:46 Ondansetron HCl (Ondansetron Inj 2 Mg/Ml Inj 2 Ml) 4 mg IV Q6H PRN; Protocol PRN Reason: NAUSEA OR VOMITING Stop: 09/27/24 19:05 Sennosides (Senna Tablet) 2 tab PO BID PRN; Protocol PRN Reason: CONSTIPATION Stop: 09/27/24 19:05 Discontinued Medications Dexamethasone Sodium Phosphate (Dexamethasone Sod Phos Inj 4 Mg/Ml Vial) 10 mg IVP X1 ONE; Protocol Stop: 08/28/24 21:23 Last Admin: 08/28/24 22:20 Dose: 10 mg Dexamethasone Sodium Phosphate (Dexamethasone Sod Phos Inj 4 Mg/Ml Vial) 4 mg IVP Q6HR AMADA; Protocol Stop: 09/28/24 00:00 Assessment & Plan Plan The patient is a 83-year-old female with a previous medical history of hypertension and dementia who was brought in to the ED on 08/28/2024 by her after having a generalized tonic-clonic seizure lasting 15-20 seconds when he was driving with her after dinner. #Provoked seizured #Metastatic brain mass #History of dementia Patient was found to have lung lesions, consistent with lung carcinoma. Imaging showed left temporal lobe lesion with edema, right cerebellar hemisphere. Plan: - oncology, consulted, appreciate recs - continue with Keppra - continue with dexamethasone - continue work-up - stop driving for now #Hypertension #Hyperlipidemia - management per primary team Plan of care discussed with attending Dr. Rubin. Amber Pickard MD, PGY 1. Attending Provider Attestation/Addendum I personally have seen and examined the patient at the bedside and agree with resident's findings, assessment and plan of care. Continue with the Decadron and Keppra. Follow-up with radiation oncologist and myself Stable for discharge
--- NOTE | 2024-08-29 15:52 | XR_ITS ---
Examination: Abdomen sonogram, Limited Date and time of exam: August 29, 2024 1600 hours INDICATIONS: Metastatic brain lesions on MRI brain study August 28, 2024, lymphadenopathy in the pelvis Technique: Real-time astorga scale transabdominal sonographic images of the upper abdomen obtained. Findings: Normal gallbladder Common bile duct 0.9 cm no common bile duct stones Pancreatic head 2.0 cm Liver 14.6 cm no focal liver lesions fatty infiltration is present Normal hepatopedal portal venous flow Patent IVC IMPRESSION: Normal gallbladder Fatty liver, no focal liver lesions
--- NOTE | 2024-08-29 16:30 | PC.SS ---
Rounding note: pending workup for brain mass.
[2024-08-30] VITALS (18 sets, daily range): BP systolic 107–136; BP diastolic 59–94; PULSE 47–74; RESP 15–95; TEMP 35.9–36.7; O2SAT 92–99
--- NOTE | 2024-08-30 | XR_ITS ---
Examination: AP chest single view TECHNIQUE: AP portable upright chest single view Date and time: August 30, 2024 1142 hours INDICATIONS: Post lung biopsy. FINDINGS: Pulmonary mass right lower lobe No pneumothorax post lung biopsy IMPRESSION: No pneumothorax post lung biopsy
[2024-08-30] MEDS: DEXAMETHASONE SOD PHOS INJ 4 MG/ML VIAL IVP ×2 (00:43→05:45)
[2024-08-30 05:32] LABS: Basophils % (Auto) 0 % (0-2.5); Eosinophils % (Auto) 0 % (0-10); Hematocrit 40.2 % (36.0-46.0); Immature Granulocytes % (Auto) 0 % (0-0); Immature Granulocytes Auto 0.03 Thou/mm3 (0.00-0.00); Lymphocytes # (Auto) 0.6 Thou/mm3 (1.0-4.8); Lymphocytes % (Auto) 6 % (10-50); Mean Corpuscular HGB Conc 34.8 g/dl (31.0-37.0); Mean Corpuscular Hemoglobin 31.7 pg (25.0-35.0); Mean Corpuscular Volume 91 fL (80-100); Monocytes # (Auto) 0.4 Thou/mm3 (0.0-0.8); Monocytes % (Auto) 4 % (0-12); Neutrophils # (Auto) 8.5 Thou/mm3 (1.8-7.7); Neutrophils % (Auto) 90 % (37-80); Nucleated Red Blood Cell % 0 /100 WBC (0); Platelet Count 257 Thou/mm3 (140-440); RDW Standard Deviation 42.9 fL (36.4-46.3); Red Blood Count 4.41 Miln/mm3 (4.00-5.20); White Blood Count 9.5 Thou/mm3 (3.6-11.0)
[2024-08-30 06:00] LABS: Anion Gap 8 (7-16); BUN/Creatinine Ratio 24 Ratio (12-20); Blood Urea Nitrogen 17 mg/dL (9-23); Calcium 8.6 mg/dL (8.3-10.6); Carbon Dioxide 24.5 mMol/L (20.0-31.0); Chloride 106 mMol/L (98-107); Creatinine (Component) 0.7 mg/dL (0.6-1.3); Estimated Creatinine Clearance 46.8 mL/min (>60); Glucose 142 mg/dL (74-106); Osmolality,Calculated 279 (275-295); Potassium 4.4 mMol/L (3.4-5.1); Sodium 138 mMol/L (136-145); eGFR > 60 See Note
[2024-08-30] MEDS: levETIRAcetam INJ 100 MG/ML VIAL 5ML 500 MG IVP (08:25)
[2024-08-30] MEDS: FAMOTIDINE INJ 10 MG/ML VIAL 2 ML 20 MG IVP (08:26)
--- NOTE | 2024-08-30 09:11 | XR_ITS ---
Examination: CT guided percutaneous biopsy pulmonary mass left lower lobe. CT thorax without intravenous contrast Date and time of procedure: August 30, 2024 1047 hours INDICATIONS: 5 cm pulmonary mass left lower lobe on CT chest study August 29, 2024 Informed consent provided. A timeout was completed verifying correct patient, procedure, site and positioning. Technique: Axial 3 mm sections were obtained for localization of the lung abnormality. Appropriate area is marked. The patient's site was prepped and draped in sterile fashion Maximal sterile barrier technique utilized, including hand hygiene Local anesthesia was obtained with 1% lidocaine. Low dose protocols were performed. One or more of the following dose reduction techniques were used; automated exposure control, adjustment of the mA and/or KV according to patient size, use of iterative reconstruction technique. Utilizing CT fluoroscopic guidance for core biopsies obtained of the pulmonary mass in the left lower lobe Patient appears in stable condition during this procedure. At completion of the procedure, the patient is in satisfactory condition. Estimated blood loss 0 cc Complete pathology report to follow. Impression: Successful CT-guided percutaneous biopsy pulmonary mass left lower lobe Preliminary pathology indicates malignant cells
--- NOTE | 2024-08-30 09:55 | PD.ONCPROG ---
Documentation for date of: 08/30/24 Subjective Subjective Interval history: Patient awaiting biopsy of left lower lobe. Admitted for seizures and brain met Exam Vital Signs Temp Pulse Resp BP Pulse Ox O2 Del Method O2 Flow Rate 97.1 F 63 16 136/77 H 95 Room Air 2 08/30/24 07:12 08/30/24 08:00 08/30/24 08:00 08/30/24 07:12 08/30/24 07:12 08/30/24 07:12 08/28/24 14:13 Objective Labs 08/30/24 04:38 08/30/24 04:38 Labs: Laboratory Results - last 24 hr 08/30/24 04:38 WBC 9.5 D RBC 4.41 Hgb 14.0 Hct 40.2 MCV 91 MCH 31.7 MCHC 34.8 RDW Std Deviation 42.9 Plt Count 257 Neut % (Auto) 90 H Lymph % (Auto) 6 L [place] % (Auto) 4 Eos % (Auto) 0 Baso % (Auto) 0 Neut # (Auto) 8.5 H Lymph # (Auto) 0.6 L [place] # (Auto) 0.4 Eos # (Auto) 0.0 Baso # (Auto) 0.0 Immature Gran # (Auto) 0.03 H Absolute Nucleated RBC 0.00 Immature Gran % 0 Nucleated RBC % 0 Sodium 138 Potassium 4.4 Chloride 106 Carbon Dioxide 24.5 Anion Gap 8 BUN 17 Creatinine 0.7 Estim Creat Clear Calc 46.8 L eGFR > 60 BUN/Creatinine Ratio 24 H Glucose 142 H Calculated Osmolality 279 Calcium 8.6 Assessment & Plan A&P Narrative 1. 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 2. Following successful biopsy of lung lesion, if clinically well can be discharged. 3. Recommend patient go home on 4 mg of Decadron every 6 p.o. along with anticonvulsant medications. 4 I will schedule patient for follow-up evaluation along with checking pathology report and radiation therapy if clinically indicated.. Time Spent With Patient Time: Total time spent is greater than 50% in coordination of care (as documented) at patient's floor/unit and/or counseling patient:
[2024-08-30] MEDS: fentaNYL CIT INJ 50 mCg/ML AMP 2ML IVP (11:18)
[2024-08-30] MEDS: HYDROmorphone INJ 2 MG/ML VIAL 0.25 MG IVP (11:53)
--- NOTE | 2024-08-30 12:30 | XR_ITS ---
Examination: AP lateral chest 2 views TECHNIQUE: AP upright portable chest single view Exam date and time: August 30, 2024 1235 hours INDICATIONS: Post lung biopsy. FINDINGS: Small left apical pneumothorax, less than 10% Pulmonary mass left lower lobe again noted No significant cardiac enlargement IMPRESSION: Small left apical pneumothorax, less than 10%
--- NOTE | 2024-08-30 13:30 | XR_ITS ---
Examination: AP chest single view Technique one AP portable upright chest single view Date and time: August 30, 2024 1330 hours Comparison August 30, 2024 INDICATIONS: Postbiopsy chest film today FINDINGS: Pulmonary mass left lower lobe Small left apical pneumothorax less than 10% IMPRESSION: Small left apical pneumothorax, less than 10%
--- NOTE | 2024-08-30 13:58 | ESDS_ITS ---
<Statement entered by Bobbi Mesa MD - 09/04/24 15:13> I reviewed above note and agree with findings and plans. I have also personally examined the patient with medicine team and went over assessment and plan with medical team including biology internship and resident physician. Planned Discharge Date 08/30/24 DS: Providers Provider Date of admission: 08/28/24 19:07 Primary care physician: Nilda Goss PA-C Admitting Provider: Syd Turk MD Attending Provider on Admission: Bobbi Mesa MD Consults: 08/28/24 18:48 Consult to Neurology / Tele-Neurology Stat Comment: new seizure Consulting Provider: Suresh Rubin 08/28/24 19:07 Referral Physical Therapy Routine Comment: Physician Instructions: 08/29/24 07:42 Consult to Oncology Stat Comment: possible brain mets Consulting Provider: Song Petty Attending Provider on DC: Bobbi Mesa MD Discharging Provider: Jarrod Carranza MD Anticipated date of discharge: 08/30/24 DS: Diagnosis Problem List Completed Was Problem List Reviewed/Reconciled?: Yes Hospital Course Hospital Course Hospital course: 83-year-old female with past medical history of dementia, hypertension who presented to the ED due to generalized tonic-clonic seizure. Brain imaging showed cerebral edema and possible brain mass. During hospital stay patient was evaluated by neurology services for the seizures recommended started the patient on Keppra 500 mg twice daily. On review of imaging of brain seem to be more metastatic lesions, radiation oncology was consulted. Patient had more imaging studies done which showed left lower lung spiculated mass which was biopsied. At this time patient is medically stable for discharge. Recommended to follow- up with primary care physician within 1 week of discharge. Follow-up with radiation oncology in regards to patient's lung and brain masses. Recommended to follow-up with neurology in regards to the patient's seizures. At the time of discharge she will be discharged with Keppra 500 mg twice daily, and dexamethasone 4 mg 3 times a day. Should any symptoms recur or worsen patient is instructed to return to the ED. Problem list: #Brain metastases #Generalized tonic-clonic seizure #Left lower lobe lung mass #Hypertension #Dementia Case discussed with my attending Dr. Bonita Carranza MD PGY-1 Status at Discharge Functional status at discharge: independent ambulation Overall status at discharge: patient is back to baseline Time Spent with Patient Time attestation: Total time spent providing and/or coordinating discharge services: Time spent: Greater than 30 minutes Exam Vital Signs Temp Pulse Resp BP Pulse Ox O2 Del Method O2 Flow Rate 98.1 F 47 L 17 118/78 98 Nasal Cannula 3 08/30/24 10:15 08/30/24 13:00 08/30/24 13:00 08/30/24 13:00 08/30/24 13:00 08/30/24 13:00 08/30/24 13:00 Narrative Exam Physical Exam GENERAL: NAD, AAOx3 HEENT: Moist mucosa. Eyes open, symmetrical, & clear CARDIO: Heart RRR, no obvious murmurs PULM: No noted coughing/dyspnea CTA B/L, no R/W/R GI: Abdomen soft, nondistended, no pain on palpation. BSx4 SKIN/MSK/EXT: No wounds/rashes/edema/amputations, no pain on palpation. Pedal pulses present B/L NEURO: AAOx3, no focal neuro deficits, able to move all 4 extremities Discharge Plan Plan Patient Disposition: HOME (Self Care) Care Plan Goals: Follow up with primary care physician within 1 week of discharge follow up with Radiation oncology in the cancer treatment center Should any symptoms recur or worsen patient is instructed to return to the ED. Prescriptions/Referrals Prescriptions/Med Rec: New dexamethasone 4 mg tablet 4 mg PO TID 30 Days Qty: 90 0RF levetiracetam [Keppra] 500 mg tablet 500 mg PO BID 30 Days Qty: 60 0RF Continued benazepril 20 mg Tablet 20 mg PO QDAY latanoprost 0.005 % drops 1 drp OPHTHALMIC (EYE) HS Patient Comments: INSTILL 1 DROP INTO EACH EYE AT BEDTIME Rx Instructions: both eyes. brimonidine-timolol 0.2-0.5 % drops 1 drp OPHTHALMIC (EYE) Q12H Patient Comments: INSTILL 1 DROP INTO EACH EYE TWICE DAILY Referrals: Nilda Goss PA-C [Primary Care Provider] - Patient/Caregiver Discharge Instructions Education Materials: ED Shortness of Breath (Dyspnea), ED Seizure New Onset Unknown ... Print Language: Romanian Stand Alone Forms: [employer] Award Info., Patient Portal Info Letter Discharge Order Discharge Orders: Discharge (Routine); Ordered 08/30/24 Ordered By: Jarrod Carranza Quality Discharge Quality Measures VTE prophylaxis
--- NOTE | 2024-08-30 14:56 | PD.RESPRO ---
Documentation for date of: 08/30/24 Subjective Subjective Interval history: Patient was seen and examined by the bedside. No acute overnight events. Patient denies seizures overnight, weakness, headache. Reports pain in the right cubital fossa after peripheral line insertion. Underwent lung biopsy today. Exam Vital Signs Temp Pulse Resp BP Pulse Ox O2 Del Method O2 Flow Rate 96.7 F L 50 L 16 126/73 98 Room Air 3 08/30/24 14:10 08/30/24 14:10 08/30/24 14:10 08/30/24 14:10 08/30/24 14:10 08/30/24 14:10 08/30/24 13:30 Narrative Exam Gen: Well-developed and well-nourished. HEENT: NCAT, PERRLA, EOMI, MMM, anicteric conjunctivae. CVS: normal S1 and S2. RRR. No M/R/G. Resp: CTA B/L. No rhonchi, rales, crackles or wheezing. Abd: soft, non-tender, non-distended. BS+ in all 4 quadrants. MSK: Good ROM in BUE & BLE. No edema or rash. Neuro: CN II-XII grossly intact. Strength 5/5 in BUE & BLE. Alert and oriented x1 (does not reports time correctly and location). Psych: appropriate mood and affect. Objective Labs 08/30/24 04:38 08/30/24 04:38 Labs: Laboratory Results - last 24 hr 08/30/24 04:38 WBC 9.5 D RBC 4.41 Hgb 14.0 Hct 40.2 MCV 91 MCH 31.7 MCHC 34.8 RDW Std Deviation 42.9 Plt Count 257 Neut % (Auto) 90 H Lymph % (Auto) 6 L [place] % (Auto) 4 Eos % (Auto) 0 Baso % (Auto) 0 Neut # (Auto) 8.5 H Lymph # (Auto) 0.6 L [place] # (Auto) 0.4 Eos # (Auto) 0.0 Baso # (Auto) 0.0 Immature Gran # (Auto) 0.03 H Absolute Nucleated RBC 0.00 Immature Gran % 0 Nucleated RBC % 0 Sodium 138 Potassium 4.4 Chloride 106 Carbon Dioxide 24.5 Anion Gap 8 BUN 17 Creatinine 0.7 Estim Creat Clear Calc 46.8 L eGFR > 60 BUN/Creatinine Ratio 24 H Glucose 142 H Calculated Osmolality 279 Calcium 8.6 Quality Measures Quality Measures VTE prophylaxis Advance care planning discussed with:: other Assessment & Plan Assessment Current Active Medications: Generic Name Dose Route Start Last Admin Trade Name Freq PRN Reason Stop Dose Admin Acetaminophen 650 mg 08/28/24 19:06 Acetaminophen 325 Mg Tablet PO 09/27/24 19:05 Q6H PRN PAIN 1-3 OR FEVER > 101 Dexamethasone Sodium Phosphate 4 mg 08/29/24 06:00 08/30/24 05:45 Dexamethasone Sod Phos Inj 4 Mg/Ml Vial IVP 09/28/24 05:59 4 mg Q6HR AMADA Administration Protocol Famotidine 20 mg 08/29/24 09:00 08/30/24 08:26 Famotidine Inj 10 Mg/Ml Vial 2 Ml IVP 09/28/24 08:59 20 mg DAILY AMADA Administration Heparin Sodium (Porcine) 5,000 unit 08/28/24 22:00 08/29/24 13:40 Heparin Sod Inj 5000 Unit/Ml Vial SC 09/11/24 21:59 Not Given Q8HR AMADA Levetiracetam 500 mg 08/28/24 21:25 08/30/24 08:25 Levetiracetam Inj 100 Mg/Ml Vial 5ml IVP 09/27/24 21:24 500 mg Q12HR AMADA Administration Lorazepam 2 mg 08/28/24 21:47 Lorazepam 2 Mg/Ml Vial IVP 09/02/24 21:46 Q15MIN PRN SEIZURES Ondansetron HCl 4 mg 08/28/24 19:06 Ondansetron Inj 2 Mg/Ml Inj 2 Ml IV 09/27/24 19:05 Q6H PRN NAUSEA OR VOMITING Protocol Sennosides 2 tab 08/28/24 19:06 Senna Tablet PO 09/27/24 19:05 BID PRN CONSTIPATION Protocol Plan The patient is a 83-year-old female with a previous medical history of hypertension and dementia who was brought in to the ED on 08/28/2024 by her after having a generalized tonic-clonic seizure lasting 15-20 seconds when he was driving with her after dinner. #Provoked seizured #Metastatic brain mass #History of dementia Patient was found to have lung lesions, consistent with lung carcinoma. Imaging showed left temporal lobe lesion with edema, right cerebellar hemisphere. Plan: - oncology, consulted, appreciate recs - continue with Keppra - continue with dexamethasone - continue work-up - stop driving for now - follow up with Dr. Rubin in 2 weeks #Hypertension #Hyperlipidemia - management per primary team Plan of care discussed with attending Dr. Rubin. Amber Pickard MD, PGY 1. Attending Provider Attestation/Addendum I personally have seen and examined the patient at the bedside and agree with resident's findings, assessment and plan of care. Continue with the Decadron and Keppra. Follow-up with radiation oncology and neurology as an outpatient.
[2024-09-04 06:51] LABS: CA 19-9 Antigen* 41 U/mL (<34)
== END 2024-08-30 15:15 | disposition home or self-care (01) | DRG 100 ==
LOC: SERX 18:11 → SERHOLD 19:21 → S3SX 21:45
PROVIDERS: Student in an Organized Health Care Education/Training Program; Admitting Provider Internal Medicine; Emergency Provider Emergency Medicine; PCP Physician Assistant; Visit Provider Internal Medicine
DX: G40.409 Other generalized epilepsy and epileptic syndromes, not intractable, without status epilepticus (principal); G93.6 Cerebral edema; C34.32 Malignant neoplasm of lower lobe, left bronchus or lung; C79.31 Secondary malignant neoplasm of brain; I10 Essential (primary) hypertension; F03.90 Unspecified dementia, unspecified severity, without behavioral disturbance, psychotic disturbance, mood disturbance, and anxiety; G93.9 Disorder of brain, unspecified; E78.5 Hyperlipidemia, unspecified; Z87.891 Personal history of nicotine dependence; Z90.710 Acquired absence of both cervix and uterus; Z79.899 Other long term (current) drug therapy; Z88.5 Allergy status to narcotic agent; T42.6X6A Underdosing of other antiepileptic and sedative-hypnotic drugs, initial encounter; Z91.128 Patient's intentional underdosing of medication regimen for other reason; Z96.653 Presence of artificial knee joint, bilateral
CPT/HCPCS: 36415; 70450; 70553; 71045; 71260; 74177; 76705; 77012; 80048; 80053; 80061; 80076; 80307; 80320; 81001; 82378; 83690; 83735; 83880; 84100; 84439; 84443; 84484; 85025; 85610; 85730; 86300; 86301; 86304; 87811; 93005; 93225; 97161; 99285; A4649; A9579; J1100; J1171; J1644; J1953; J3010; J3490; Q9967; G0480

== ENCOUNTER 2024-09-10 10:00 | Outpatient (RCR) | payer MEDICARE, BC, SELFPAY ==
--- NOTE | 2024-09-05 14:17 | CTCFLWUP_ITS ---
[facility] [address] [place], [place] [address] FOLLOW-UP NOTE Date: 09/03/2024 MR#: [id number] Name: JENNY VILLALBA : 1940 Dx: C79.31 Metastatic malignancy to brain. Identification. Patient was admitted after having seizures with 08/28/2024 MRI showing enhancing foci left temporal lobe right cerebellar consistent with mets disease Please see consult of 08/29/2024. Chest abdomen pelvis 08/29/2024 showed 5 cm pulmonary mass spiculated margin left lower lobe consistent with lung carcinoma along with enlarged common hepatic duct and left common iliac lymphadenopathy likely metastatic. Seizures were controlled with medication Keppra along with initiation of Decadron 4 mg every 6. Biopsy of the left lower lobe 08/30/2024 revealed invasive adenocarcinoma consistent with lung primary. Patient is doing fairly well outside hospital appearing comfortable on steroids and Keppra. Spoke to patient about radiation therapy using VMAT to the left temporal and cerebellar regions. Because of considerable edema making the target in the 5 to 6 cm range along with having seizure symptoms I believe VMAT would be more appropriate than SRS. Consent signed. Will also get PET scan and check PD-L1 already ordered and foundation 1 to help medical oncologist with systemic therapy. Side effects explained. 3000 cGy in 10 fractions to right cerebellar and left temporal regions. Electronically signed by: Song Petty M.D. 09/03/2024 12:40 PM
--- NOTE | 2024-09-05 14:17 | CTCTXPLNST_ITS ---
Radiation Oncology Treatment Planning Sheet Name: JENNY VILLALBA MR#: [id number] : 1940 Dx: C79.31 Secondary malignant neoplasm of brain Date of Service: 09/03/2024 Account #: ?? Pt Treatment Intent: curative palliative other: Stage: Procedure CPT # Ordered Spec. Procedure 21594 Chemoradiation 1 Mendez Complex (set-up) 78792 Brain 1 Mendez Simple 54445 IMRT Plan 41592 2 MLC Devices VMAT 13321 6 Mendez 3 D 22861 TRTMT dev Complex 43399 Aqua Plast 1 TRTMT dev simple 12631 Basic Munir 30843 8 Special Dosimetry 57522 Spec Physics 18496 Port Films 16211 SRS Cranial/1FX 55662 SBR 5 FX or Less /ex: 5 = 5 fx 52480 IMRT Simple 14690 2 sites 3000 10 IMRT Complex 63915 IGRT 70162 10 Rad del com 6-10 34147 Rad del com 11 89834 Cont Med Physics 04792 2 Treatment Planning 32464 1 Rad del com 20 mev 63463 Rad del inter 6-10 50751 Rad del inter 11 72587 Rad del simple 6-10 39917 Rad del simple 11 74679 Special Port Plan 63791 TRTMT dev inter 52989 Isodose Complex 65862 Isodose simple 10335 Resp Motion Mgmt Simulation 70424 Placement of Fiducial Markers 21199 Electronically Signed By: Song Petty MD, DABR 09/03/2024 1:00 PM
--- NOTE | 2024-09-05 14:17 | CTCTXPLN_ITS ---
[facility] [address] [place], [place] [address] Physician Clinical Treatment Planning Note Date of Service: 09/03/2024 Name: JENNY VILLALBA : 1940 The patient has agreed to proceed with Radiation therapy. Tests and supporting medical records were interpreted to assist in defining the tumor location and extent of disease. Further imaging will be necessary to contour and delineate the volume to which the XRT will be provided. A. Treatment Intent: Palliative B. Modality: 6 MV C. Requested Technique: VMAT D. Treatment Site: Brain E. Critical structures to be contoured on plan: F. In order to accomplish this plan, I am ordering/Prescribing the followin. Simulations (s) will be performed to accomplish a reproducible treatment position, to determine optimal treatment portals/beam arrangements, to design beam modifying devices and verify treatment portals on patient prior to the commencement of Radiation Therapy. Brain 2. Devices; for immobilization and beam shaping: Aqua Plast 3. CT Guidance for placement of XRT velez Scan area: 4. Portal images Frequency: 5. Invivo transit dose measurement once per week on all VMAT patients. 6. Special Physics Consult Requested for: 7. Other requests: Special procedure getting chemo and radiation G. Dose Objectives: Curative Electronically signed by: Song Petty M.D. 09/03/2024 12:46 PM
== END 2024-09-14 23:59 | disposition home or self-care (01) ==
LOC: SCTC 10:00
PROVIDERS: PCP Physician Assistant; Referring Provider Physician Assistant; Visit Provider Radiology Therapeutic Radiology
DX: Z51.0 Encounter for antineoplastic radiation therapy (principal); C79.31 Secondary malignant neoplasm of brain; C34.32 Malignant neoplasm of lower lobe, left bronchus or lung
CPT/HCPCS: 77014; 77290; 77300; 77301; 77334; 77338; 77470; 99213; G0463

== ENCOUNTER 2024-09-30 11:31 | Outpatient (RCR) | payer MEDICARE, BC, SELFPAY | END 2024-10-14 23:59 | disposition home or self-care (01) | LOC: SCTC 11:31 | PROVIDERS: PCP Physician Assistant; Referring Provider Physician Assistant; Visit Provider Radiology Therapeutic Radiology | DX: Z51.0 Encounter for antineoplastic radiation therapy (principal); C79.31 Secondary malignant neoplasm of brain; C34.32 Malignant neoplasm of lower lobe, left bronchus or lung | CPT/HCPCS: 77385 ==

== ENCOUNTER 2024-10-15 10:52 | Outpatient (RCR) | payer MEDICARE, BC, SELFPAY ==
--- NOTE | 2024-10-15 11:46 | CTCTSUMM_ITS ---
[facility] [address] [place], [place] [address] Treatment Summary Date: 10/15/2024 MR#: [id number] Name: JENYN VILLALBA : 1940 Dx: C79.31 Referring Physician: Nilda LOGAN [facility] (A) Diagnosis: [ICD10] C79.31 Secondary malignant neoplasm of brain; [ICD10] C34.32 Malignant neoplasm of lower lobe, left bronchus or lung (B) Aim of Treatment: ??Palliative (C) Concomitant Chemotherapy: No (D) Radiation Dates: 09/17/2024 through 09/30/2024 Treatment Prescription R cerebellum CTV2 VMAT 6 MV PHOT 300 cGy 1 300 cGy Approved combined VMAT 6 MV PHOT 2,925 cGy 9 325 cGy Approved (E) All velez were treated using customized MLC Blocks (F) Finding at Discharge: Patient was seen for first follow-up 10/15/2024. Patient complained of fatigue but appeared well. Some patient missed the appointment for Dr. Manrique medical oncologist as well as PET scan. This will be rescheduled. MRI of the brain will not be ordered as well. I will see the patient again in 2 months. (G) Discharge Instructions and F/U Appt was given: The patient was also advised to continue follow-up with Dr. Manrique and primary care physician: cc: Nilda LOGAN [facility] Electronically signed by: Song Petty MD, ASHELY 10/15/2024 11:44 AM
== END 2024-11-14 23:59 | disposition home or self-care (01) ==
LOC: SCTC 10:52
PROVIDERS: PCP Physician Assistant; Referring Provider Physician Assistant; Visit Provider Radiology Therapeutic Radiology
DX: C79.31 Secondary malignant neoplasm of brain (principal); C34.32 Malignant neoplasm of lower lobe, left bronchus or lung; Z92.3 Personal history of irradiation; R53.0 Neoplastic (malignant) related fatigue
CPT/HCPCS: 99212; G0463

== ENCOUNTER → 2024-10-22 | Outpatient (CLI) | payer MEDICARE, BC, SELFPAY ==
[2024-10-22 11:11] LABS: Albumin, Serum 3.8 gm/dL (3.4-4.8); Anion Gap 9 (7-16); BUN/Creatinine Ratio 19 Ratio (12-20); Blood Urea Nitrogen 13 mg/dL (9-23); Calcium 8.5 mg/dL (8.3-10.6); Calcium (Corrected) 8.7 mg/dL (8.5-10.1); Carbon Dioxide 29.1 mMol/L (20.0-31.0); Chloride 103 mMol/L (98-107); Creatinine (Component) 0.7 mg/dL (0.6-1.3); Glucose 91 mg/dL (74-106); Osmolality,Calculated 281 (275-295); Phosphorous 3.1 mg/dL (2.4-5.1); Potassium 4.3 mMol/L (3.4-5.1); Sodium 141 mMol/L (136-145); eGFR > 60 See Note
== END | disposition home or self-care (01) ==
LOC: COPL 09:03
PROVIDERS: PCP Physician Assistant; Referring Provider Psychiatry & Neurology Neurology; Visit Provider Psychiatry & Neurology Neurology
DX: R41.3 Other amnesia (principal)
CPT/HCPCS: 36415; 80069

== ENCOUNTER → 2024-11-15 | Outpatient (CLI) | payer MEDICARE, BC, SELFPAY ==
--- NOTE | 2024-11-15 10:19 | XR_ITS ---
EXAMINATION: PET/CT FUSION SKULL TO THIGH EXAM DATE AND TIME: November 15, 2024, [address] chest abdomen pelvis August 29, 2024 INDICATIONS: Diagnosis lung cancer restaging post treatment CTDI:vol (mGy) 2.99 DLP: (mGycm) 272.84 PROCEDURE: 15.9 mCi FDG was administered intravenously To allow for distribution and uptake of radiotracer, the patient was allowed to rest quietly in a shielded room. Imaging was performed on an integrated 16-slice PET/CT scanner, with scanning from the skull base to the mid thigh. Serum blood glucose at the time of the injection was measured 113 mg/dL. CT scanning was performed without oral or intravenous contrast material. FINDINGS: Head and Neck: There is no celso hypermetabolism in the neck. The visualized portions of the brain are normal in appearance on CT. Chest: Non hypermetabolic 4 mm pulmonary nodule right upper lobe image 68 Non hypermetabolic 12 mm pulmonary nodule left upper lobe image 75 Hypermetabolic pulmonary mass left lower lobe, spiculated margins, 3.9 x 4.7 cm compared to 4.9 x 4.3 cm: August 29, 2024 Abdomen and Pelvis: 3 cm poorly defined hypermetabolic areas medial to the right kidney without definite mass on the corresponding noncontrast images Musculoskeletal: Marrow uptake is within normal range. IMPRESSION: Non hypermetabolic 4 mm pulmonary nodule right upper lobe Non hypermetabolic 12 mm pulmonary nodule left upper lobe. Hypermetabolic pulmonary mass left lower lobe, 4.7 x 3.9 cm compared to 4.9 x 4.3 cm on August 29, 2024 Recommend renal sonography to confirm no solid renal lesion right kidney
== END | disposition home or self-care (01) ==
LOC: CDIM 10:05
PROVIDERS: Referring Provider Radiology Therapeutic Radiology; Visit Provider Radiology Therapeutic Radiology
DX: R91.8 Other nonspecific abnormal finding of lung field (principal); C79.31 Secondary malignant neoplasm of brain
CPT/HCPCS: 78815; A9552

== ENCOUNTER → 2024-11-16 | Outpatient (CLI) | payer MEDICARE, BC, SELFPAY ==
--- NOTE | 2024-11-16 12:30 | XR_ITS ---
Examination: MRI brain with intravenous contrast TECHNIQUE: Multiple axial sagittal coronal rain MRI images post intravenous administration of 12 cc gadolinium Date and time: November 16, 2024, 1318 hours Comparison August 28, 2024 INDICATIONS: Diagnosis malignant neoplasm left lower lobe bronchus or lung, headaches 3 years, enhancing foci in the left temporal lobe and right cerebellar hemisphere, metastatic disease pattern on brain MRI August 28, 2024 FINDINGS: Enhancing lesion right cerebellar hemisphere measures 3 mm compared to 5 mm on August 28, 2024 Enhancing lesion left temporal lobe measures 6 mm compared to 11 mm on August 28, 2024 Lesion in the right cerebellar vermis measures 2 mm compared to 4 mm on August 28, 2024 Ventricles are nonenlarged No mass effect upon the ventricular system IMPRESSION: Significant treatment response compared to August 28, 2024
== END | disposition home or self-care (01) ==
LOC: SMRI 12:03
PROVIDERS: PCP Physician Assistant; Referring Provider Radiology Therapeutic Radiology; Visit Provider Radiology Therapeutic Radiology
DX: R51.9 Headache, unspecified (principal); C79.31 Secondary malignant neoplasm of brain; C34.32 Malignant neoplasm of lower lobe, left bronchus or lung
CPT/HCPCS: 70552; A9579

== ENCOUNTER 2024-12-02 15:22 | Outpatient (RCR) | payer MEDICARE, BC, SELFPAY ==
--- NOTE | 2024-11-25 00:09 | CTCCONSULT_ITS ---
Patient: JENNY VILLALBA : 1940 MR#: [id number] Page 4 of 5 CONSULTATION NOTE DATE OF CONSULTATION: 11/18/2024 NAME: JENNY VILLALBA ACCOUNT: [id number] : 1940 AGE: 84 REFERRING PHYSICIAN: Nilda Goss MD PRIMARY PHYSICIAN: REASON FOR VISIT: Follow-up on lung adenocarcinoma ONCOLOGY HISTORY: DIAGNOSIS: Secondary malignant neoplasm of brain [ICD10] C79.31; Malignant neoplasm of lower lobe, left bronchus or lung [ICD10] C34.32 DATE OF DIAGNOSIS: 08/30/2024 STAGE/TNM: Lung adenocarcinoma No targetable mutations PD-L1 0 Patient have ER B B2 mutation. Patient will be a candidate for fam-trastuzumab that extent in second line other drugs are TDM 1 Herceptin Herceptin plus Perjeta and neratinib TREATMENT HISTORY: Care?Plan Start?Date Cycle Day Intent Pembro?Abraxane?and?carboplatin?Keynote?355 11/18/2024 1 21 Induction-Primary HISTORY OF PRESENT ILLNESS: Subjective Chief Complaint Follow-up for lung cancer and brain metastases, memory decline since radiation treatment History of Present Illness Kayce ramsay, an 83-year-old female with a history of lung adenocarcinoma and brain metastases, presents for follow-up after completing radiation therapy. The patient recently finished whole-brain radiation on September 30, which has successfully decreased the size of the brain cancer lesions by half. However, since completing radiation, she has experienced a decline in memory function, which is noted as a common side effect, particularly in older patients. The patient's lung cancer is currently limited to one spot that appears to be cancerous. She has not smoked for over 45 years, and it is noted that her current lung cancer is not related to smoking. Despite her age, the patient maintains good overall health and engages in daily walks. She reports walking two miles a day, which takes her about 40 to 45 minutes, a routine she has maintained since 1983. The patient is currently taking Keppra for seizure management, which will be continued. She has been on steroids, which are now being tapered off. Despite the challenges of her diagnosis, the patient demonstrates good understanding of her condition and treatment plan. Medications and Supplements - Keppra - For seizures - Steroids - Being tapered off Review of Systems Neurological: Positive for memory decline. Objective Physical Examination General: Patient appears to be in good health for stated age of 83. Musculoskeletal: Patient is able to walk daily. Laboratory, Imaging, and Diagnostic Test Results - PET scan (MonNov 15 2024): Brain tumor decreased in size, lung cancer limited to one spot - MRI (MonNov 16 2024): Confirmed brain tumor size decrease - Biopsy (date not specified): Performed on lung, confirmed lung adenocarcinoma - Genetic testing (date not specified): No mutations found in cancer Assessment and Plan Kayce ramsay, 83-year-old female with lung adenocarcinoma and brain metastases, presenting for follow-up after radiation therapy. Lung adenocarcinoma with brain metastases Assessment: Patient has lung adenocarcinoma with brain metastases. Recent radiation therapy to the brain has been effective, reducing the size of cancer lesions by half. PET scan and MRI performed on Monday and Monday, respectively, confirmed the reduction in brain tumor size and revealed only one cancerous spot remaining in the lung. No mutations were found in the cancer. Plan: - Initiate combination therapy with chemotherapy and immunotherapy - Continue Keppra for seizure management - Taper off steroids - Monitor for radiation side effects, particularly memory decline - Encourage continuation of daily walking routine (2 miles per day, 40-45 minutes) - Follow up to assess response to combination therapy and monitor for any new symptoms or side effects Post-radiation therapy cognitive decline Assessment: Patient has experienced memory decline since completing radiation therapy on September 30. This is noted as a common side effect of whole-brain radiation, especially in older patients. The clinician expresses a preference for targeted treatments like Cyberknife to avoid such issues in future cases. 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 [employer] MEMBER HISTORY: Menarche?-?Age:?13 Menopause:?hystrectomy :?2 Live?Births:?2 Age?1st?:?20 MEDICATIONS: 1. benazepril - 20 mg 1 tab Daily 2. dexamethasone - 4 mg 1 tab Twice a Day 3. Keppra - 500 mg 1 tab Twice a Day Medications Last Reconciled by Paula Morejon RN on 11/18/2024 ALLERGIES: codeine sulfate REVIEW OF SYSTEMS: A complete 14-point review of systems was performed and is negative except as noted in interval history. PHYSICAL EXAMINATION: VITAL SIGNS: Temperature?98.3, B/P?131/88, Height?60?inches, Oxygen?Saturation?98% Weight?124?lbs PAIN: 0 - No pain ECOG Performance Status: 1 - Symptomatic; ambulatory; restricted in strenuous activity GENERAL APPEARANCE: Appears well, in no apparent distress, appropriately interactive. HEENT: Normocephalic, no temporal wasting, normal conjunctiva, no scleral icterus, normal hearing, lips without lesions, neck normal range of motion. CARDIOVASCULAR: Not assessed. PULMONARY: Normal respiratory effort, no respiratory distress or use of accessory muscles, speaking in full sentences, no tachypnea. EXTREMITIES: No pedal edema or cyanosis. SKIN: Normal skin appearance. NEUROLOGIC: Alert and oriented x4. PSHYCHIATRIC: Appropriate affect, mood normal, behavior normal, intact thought and speech. LABORATORY DATA: I have personally reviewed and interpreted each of the patient?s relevant lab tests, abnormal findings are below: Date 08/29/24 10/22/24 ??GLUCOSE,RANDOM?(mg/dL) ? 91 ??BLOOD?UREA?NITROGEN?(mg/dL) ? 13 ??CREATININE?(mg/dL) ? 0.70 ??SODIUM?(mmol/L) ? 141 ??POTASSIUM?(mmol/L) ? 4.3 ??CHLORIDE?(mmol/L) ? 103 ??CrCl?(CandG)?(ml/min) ? 59.45 ??ALBUMIN,?SERUM?(gm/dl) ? 3.8 ??CALCIUM,?SERUM?(mg/dL) ? 8.5 ??CALCIUM?SERUM?(CORRECTED)?(mg/dL) ? 8.7 ??CA?19-9?(Unit/mL) 41.00?A ? ORDERS: Order # Description [id number] Thyroid Stimulating Hormone + Comprehensive Metabolic Panel + CBC with Auto Diff + Thyroxine, Free [id number] Thyroid Stimulating Hormone + Comprehensive Metabolic Panel + CBC with Auto Diff + Thyroxine, Free [id number] Thyroid Stimulating Hormone + Comprehensive Metabolic Panel + CBC with Auto Diff + Thyroxine, Free [id number] Thyroid Stimulating Hormone + Comprehensive Metabolic Panel + CBC with Auto Diff + Thyroxine, Free [id number] Thyroid Stimulating Hormone + Comprehensive Metabolic Panel + CBC with Auto Diff + Thyroxine, Free [id number] Thyroid Stimulating Hormone + Comprehensive Metabolic Panel + CBC with Auto Diff + Thyroxine, Free [id number] Thyroid Stimulating Hormone + Comprehensive Metabolic Panel + CBC with Auto Diff + Thyroxine, Free [id number] Thyroid Stimulating Hormone + Comprehensive Metabolic Panel + CBC with Auto Diff + Thyroxine, Free [id number] Thyroid Stimulating Hormone + Comprehensive Metabolic Panel + CBC with Auto Diff + Thyroxine, Free [id number] Thyroid Stimulating Hormone + Comprehensive Metabolic Panel + CBC with Auto Diff + Thyroxine, Free [id number] Thyroid Stimulating Hormone + Comprehensive Metabolic Panel + CBC with Auto Diff + Thyroxine, Free RETURN TO CLINIC: I reviewed the diagnosis, prognosis, and recommended treatment/procedure options with the patient (and/or their legal dermatology sales representative), including the potential benefits, risks, side effects and alternative therapies. We also discussed the option of no treatment and the possibility of clinical trial participation, if applicable. All questions were addressed, and they demonstrated understanding. They provided informed consent to proceed with the proposed plan of care. BILLING AND COMPLIANCE: I reviewed external records from providers outside my specialty as summarized above. I spent a total of 50 minutes on this patient?s care on the day of their visit excluding time spent related to any billed procedures. This time includes time spent with the patient as well as time spent documenting in the medical record, reviewing patients records and tests, obtaining history, placing orders, communicating with other healthcare professionals, counseling the patient, family or caregiver, and/or care coordination for the diagnoses above. Electronically Signed by: Sabas Manrique MD T: 12:07 AM CC: PCP: Referring: Nilda Goss This document was completed utilizing speech recognition software. Grammatical errors, random word insertions, pronoun errors, and incomplete sentences are an occasional consequence of this system due to software limitations, ambient noise, and hardware issues. Any formal questions or concerns about the content, text or information contained within the body of this dictation should be directly addressed to the provider for clarification.
--- NOTE | 2024-12-02 16:48 | CTCFLWUP_ITS ---
Patient: JENNY VILLALBA : 1940 Page 3 of 6 FOLLOW UP NOTE DATE OF SERVICE: 12/02/2024 NAME: JENNY VILLALBA ACCOUNT: [id number] : 1940 AGE: 84 INTERVAL HISTORY: Patient is having memory loss. Patient and have not decided if she wants to get treatment . ONCOLOGY HISTORY:?[facility] Hx? 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 Patient will be a candidate for fam-trastuzumab that extent in second line other drugs are TDM 1 Herceptin Herceptin plus Perjeta and neratinib TREATMENT HISTORY: Care?Plan Start?Date Cycle Day Intent Pembro?Abraxane?and?carboplatin?Keynote?355 11/18/2024 1 21 Induction-Primary NSC?Adeno?alimp?500?mg/m*2,?CARBO?5,?Keytruda 11/27/2024 1 21 Palliative HISTORY OF PRESENT ILLNESS: Subjective Chief Complaint Follow-up for lung cancer and brain metastases, memory decline since radiation treatment History of Present Illness Kayce ramsay, an 84-year-old female with a history of lung adenocarcinoma and brain metastases, presents for follow-up after completing radiation therapy. The patient recently finished whole-brain radiation on September 30, which has successfully decreased the size of the brain cancer lesions by half. However, since completing radiation, she has experienced a decline in memory function, which is noted as a common side effect, particularly in older patients. The patient's lung cancer is currently limited to one spot that appears to be cancerous. She has not smoked for over 45 years, and it is noted that her current lung cancer is not related to smoking. Despite her age, the patient maintains good overall health and engages in daily walks. She reports walking two miles a day, which takes her about 40 to 45 minutes, a routine she has maintained since 1983. The patient is currently taking Keppra for seizure management, which will be continued. She has been on steroids, which are now being tapered off. Despite the challenges of her diagnosis, the patient demonstrates good understanding of her condition and treatment plan. Medications and Supplements - Keppra - For seizures - Steroids - Being tapered off Review of Systems Neurological: Positive for memory decline. Objective Physical Examination General: Patient appears to be in good health for stated age of 83. Musculoskeletal: Patient is able to walk daily. 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 benazepril - 20 mg 1 tab Daily 2. dexamethasone - 4 mg 1 tab Twice a Day 3. Keppra - 500 mg 1 tab Twice a Day?Palabra Meds? Medications Last Reconciled by Nina Rollins MA on 12/02/2024 ALLERGIES: codeine sulfate REVIEW OF SYSTEMS: A complete 14-point review of systems was performed and is negative except as noted in interval history. PHYSICAL EXAMINATION:?[facility] PE? VITAL SIGNS: Temperature?98.9, B/P?102/67, Oxygen?Saturation?96% PAIN: 0 - No pain ECOG Performance Status: 0 - Asymptomatic and fully active GENERAL APPEARANCE: Appears well, in no apparent distress, appropriately interactive. HEENT: Normocephalic, no temporal wasting, normal conjunctiva, no scleral icterus, normal hearing, lips without lesions, neck normal range of motion. CARDIOVASCULAR: Not assessed. PULMONARY: Normal respiratory effort, no respiratory distress or use of accessory muscles, speaking in full sentences, no tachypnea. EXTREMITIES: No pedal edema or cyanosis. SKIN: Normal skin appearance. NEUROLOGIC: Alert and oriented x4. PSHYCHIATRIC: Appropriate affect, mood normal, behavior normal, intact thought and speech. LABORATORY DATA: I have personally reviewed and interpreted each of the patient?s relevant lab tests, abnormal findings are below: Date 08/29/24 10/22/24 ??GLUCOSE,RANDOM?(mg/dL) ? 91 ??BLOOD?UREA?NITROGEN?(mg/dL) ? 13 ??CREATININE?(mg/dL) ? 0.70 ??SODIUM?(mmol/L) ? 141 ??POTASSIUM?(mmol/L) ? 4.3 ??CHLORIDE?(mmol/L) ? 103 ??CrCl?(CandG)?(ml/min) ? 59.45 ??ALBUMIN,?SERUM?(gm/dl) ? 3.8 ??CALCIUM,?SERUM?(mg/dL) ? 8.5 ??CALCIUM?SERUM?(CORRECTED)?(mg/dL) ? 8.7 ??CA?19-9?(Unit/mL) 41.00?A ? ASSESSMENT/PLAN: Patient has lung adenocarcinoma with brain metastases. Recent radiation therapy to the brain has been effective, reducing the size of cancer lesions by half. PET scan and MRI performed on Monday and Monday, respectively, confirmed the reduction in brain tumor size and revealed only one cancerous spot remaining in the lung. No mutations were found in the cancer. - Initiate combination therapy with chemotherapy and immunotherapy - Continue [facility] for seizure management - Taper off steroids - Monitor for radiation side effects, particularly memory decline - Encourage continuation of daily walking routine (2 miles per day, 40-45 minutes) - Follow up to assess response to combination therapy and monitor for any new symptoms or side effects Post-radiation therapy cognitive decline Assessment: Patient has experienced memory decline since completing radiation therapy on September 30. This is noted as a common side effect of whole-brain radiation, especially in older patients. The clinician expresses a preference for targeted treatments like Cyberknife to avoid such issues in future cases. 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 PHYSICAL EXAMINATION: VITAL SIGNS: Temperature?98.3, B/P?131/88, Height?60?inches, Oxygen?Saturation?98% Weight?124?lbs PAIN: 0 - No pain ECOG Performance Status: 1 - Symptomatic; ambulatory; restricted in strenuous activity GENERAL APPEARANCE: Appears well, in no apparent distress, appropriately interactive. HEENT: Normocephalic, no temporal wasting, normal conjunctiva, no scleral icterus, normal hearing, lips without lesions, neck normal range of motion. CARDIOVASCULAR: Not assessed. PULMONARY: Normal respiratory effort, no respiratory distress or use of accessory muscles, speaking in full sentences, no tachypnea. EXTREMITIES: No pedal edema or cyanosis. SKIN: Normal skin appearance. NEUROLOGIC: Alert and oriented x4. PSHYCHIATRIC: Appropriate affect, mood normal, behavior normal, intact thought and speech. LABORATORY DATA: I have personally reviewed and interpreted each of the patient?s relevant lab tests, abnormal findings are below: Date 08/29/24 10/22/24 ??GLUCOSE,RANDOM?(mg/dL) ? 91 ??BLOOD?UREA?NITROGEN?(mg/dL) ? 13 ??CREATININE?(mg/dL) ? 0.70 ??SODIUM?(mmol/L) ? 141 ??POTASSIUM?(mmol/L) ? 4.3 ??CHLORIDE?(mmol/L) ? 103 ??CrCl?(CandG)?(ml/min) ? 59.45 ??ALBUMIN,?SERUM?(gm/dl) ? 3.8 ??CALCIUM,?SERUM?(mg/dL) ? 8.5 ??CALCIUM?SERUM?(CORRECTED)?(mg/dL) ? 8.7 ??CA?19-9?(Unit/mL) 41.00?A ? ORDERS: Order # Description [id number] CBC + Comprehensive Metabolic Panel + [facility]A [id number] Lab Appointment [id number] CBC + Comprehensive Metabolic Panel + [facility] [id number] Lab Appointment [id number] CBC + Comprehensive Metabolic Panel + [facility]A [id number] Lab Appointment [id number] CBC + Comprehensive Metabolic Panel + [facility]A [id number] Lab Appointment [id number] CBC + Comprehensive Metabolic Panel + CEA [id number] Lab Appointment [id number] CBC + Comprehensive Metabolic Panel + CEA [id number] Lab Appointment [id number] CBC + Comprehensive Metabolic Panel + CEA [id number] Lab Appointment [id number] CBC + Comprehensive Metabolic Panel + CEA [id number] Lab Appointment [id number] CBC + Comprehensive Metabolic Panel + CEA [id number] Lab Appointment [id number] CBC + Comprehensive Metabolic Panel + CEA [id number] Lab Appointment [id number] CBC + Comprehensive Metabolic Panel + CEA [id number] Lab Appointment [id number] CBC + Comprehensive Metabolic Panel + CEA [id number] Lab Appointment [id number] CBC + Comprehensive Metabolic Panel + CEA [id number] Lab Appointment [id number] CBC + Comprehensive Metabolic Panel + CEA [id number] Lab Appointment [id number] CBC + Comprehensive Metabolic Panel + CEA [id number] Lab Appointment [id number] CBC + Comprehensive Metabolic Panel + CEA [id number] Lab Appointment [id number] CBC + Comprehensive Metabolic Panel + CEA [id number] Lab Appointment [id number] CBC + Comprehensive Metabolic Panel + CEA [id number] Lab Appointment [id number] CBC + Comprehensive Metabolic Panel + CEA [id number] Lab Appointment [id number] CBC + Comprehensive Metabolic Panel + CEA [id number] Lab Appointment [id number] CBC + Comprehensive Metabolic Panel + CEA [id number] Lab Appointment [id number] CBC + Comprehensive Metabolic Panel + CEA [id number] Lab Appointment [id number] CBC + Comprehensive Metabolic Panel + CEA [id number] Lab Appointment [id number] CBC + Comprehensive Metabolic Panel + CEA [id number] Lab Appointment [id number] CBC + Comprehensive Metabolic Panel + CEA [id number] Lab Appointment [id number] CBC + Comprehensive Metabolic Panel + CEA [id number] Lab Appointment RETURN TO CLINIC: I reviewed the diagnosis, prognosis, and recommended treatment/procedure options with the patient (and/or their legal insurance verification representative), including the potential benefits, risks, side effects and alternative therapies. We also discussed the option of no treatment and the possibility of clinical trial participation, if applicable. All questions were addressed, and they demonstrated understanding. They provided informed consent to proceed with the proposed plan of care. BILLING AND COMPLIANCE: I reviewed external records from providers outside my specialty as summarized above. I spent a total of 50 minutes on this patient?s care on the day of their visit excluding time spent related to any billed procedures. This time includes time spent with the patient as well as time spent documenting in the medical record, reviewing patients records and tests, obtaining history, placing orders, communicating with other healthcare professionals, counseling the patient, family or caregiver, and/or care coordination for the diagnoses above. Electronically Signed by: Sabas Manrique MD T: 4:46 PM CC: PCP: Referring: Nilda Goss This document was completed utilizing speech recognition software. Grammatical errors, random word insertions, pronoun errors, and incomplete sentences are an occasional consequence of this system due to software limitations, ambient noise, and hardware issues. Any formal questions or concerns about the content, text or information contained within the body of this dictation should be directly addressed to the provider for clarification.
== END 2024-12-15 23:59 | disposition home or self-care (01) ==
LOC: SCTC 15:22
PROVIDERS: PCP Physician Assistant; Referring Provider Physician Assistant; Visit Provider Internal Medicine Hematology & Oncology
DX: C34.32 Malignant neoplasm of lower lobe, left bronchus or lung (principal); C79.31 Secondary malignant neoplasm of brain; R41.3 Other amnesia; Z92.3 Personal history of irradiation
CPT/HCPCS: 99212; 99213; G0463

== ENCOUNTER → 2025-01-01 | Outpatient (CLI) | payer MEDICARE, BC, SELFPAY ==
--- NOTE | 2025-01-01 | XR_ITS ---
Examination: Duplex scan of the lower extremity, unilateral right Date and time of exam: January 02, 2000 2512 noon INDICATIONS: Right ankle swelling and pain today Technique: Duplex scan of the extremity veins using B-mode/grayscale imaging and Doppler spectral analysis and color flow Attention is directed to internal echogenicity, compression and augmentation involving these veins, color flow assessment, spectral analysis Findings: Major deep venous structures in the extremity demonstrate normal course and caliber. There is no evidence of deep vein thrombosis. Normal color flow and spectral analysis Impression: Negative for DVT.. Positive for nonocclusive thrombus in the superficial greater saphenous vein
== END | disposition home or self-care (01) ==
LOC: CDIM 11:49
PROVIDERS: PCP Physician Assistant; Referring Provider Physician Assistant; Visit Provider Physician Assistant
DX: I82.811 Embolism and thrombosis of superficial veins of right lower extremity (principal)
CPT/HCPCS: 93971

== ENCOUNTER → 2025-01-22 | Outpatient (CLI) | payer MEDICARE, BC, SELFPAY ==
--- NOTE | 2025-01-22 09:24 | XR_ITS ---
EXAMINATION: PA lateral chest 2 views TECHNIQUE: Upright PA lateral chest 2 views Date and time: January 22, 2025, 0950 hours, comparison August 30, 2024 INDICATIONS: Diagnosis malignant neoplasm of bronchus left lung, history biopsy this year FINDINGS: Poorly defined pulmonary mass in the left lower lobe at least 5.5 cm Mild prominence left ventricle Prominent thoracic dextroscoliosis No pulmonary edema Prominent osteopenia IMPRESSION: Poorly defined pulmonary mass in the left lower lobe, at least 5.5 cm
== END | disposition home or self-care (01) ==
PROVIDERS: PCP Physician Assistant; Referring Provider Physician Assistant; Visit Provider Physician Assistant
DX: R91.8 Other nonspecific abnormal finding of lung field (principal); C34.90 Malignant neoplasm of unspecified part of unspecified bronchus or lung; R53.83 Other fatigue
CPT/HCPCS: 71046

== ENCOUNTER → 2025-01-22 | Outpatient (CLI) | payer MEDICARE, BC, SELFPAY ==
[2025-01-22 12:13] LABS: Basophils # (Auto) 0.0 Thou/mm3 (0.0-0.2); Basophils % (Auto) 1 % (0-2.5); Eosinophils # (Auto) 0.1 Thou/mm3 (0.0-0.5); Eosinophils % (Auto) 2 % (0-10); Hematocrit 38.5 % (36.0-46.0); Hemoglobin 12.5 g/dL (12.0-16.0); Immature Granulocytes Auto 0.03 Thou/mm3 (0.00-0.00); Lymphocytes # (Auto) 1.1 Thou/mm3 (1.0-4.8); Lymphocytes % (Auto) 16 % (10-50); Mean Corpuscular HGB Conc 32.5 g/dl (31.0-37.0); Mean Corpuscular Hemoglobin 32.0 pg (25.0-35.0); Mean Corpuscular Volume 99 fL (80-100); Monocytes # (Auto) 0.7 Thou/mm3 (0.0-0.8); Monocytes % (Auto) 11 % (0-12); Neutrophils # (Auto) 4.6 Thou/mm3 (1.8-7.7); Neutrophils % (Auto) 70 % (37-80); Nucleated Red Blood Cell # 0.00 Thou/mm3 (0.00-0.00); Nucleated Red Blood Cell % 0 /100 WBC (0); Platelet Count 276 Thou/mm3 (140-440); RDW Standard Deviation 47.2 fL (36.4-46.3); Red Blood Count 3.91 Miln/mm3 (4.00-5.20); White Blood Count 6.6 Thou/mm3 (3.6-11.0)
[2025-01-22 12:44] LABS: Alanine Aminotransferase 13 U/L (10-49); Albumin, Serum 4.4 gm/dL (3.4-4.8); Albumin/Globulin Ratio 2.3 (1.2-2.2); Alkaline Phosphatase 52 U/L (46-116); Anion Gap 10 (7-16); Aspartate Amino Transferase 19 U/L (0-34); BUN/Creatinine Ratio 16 Ratio (12-20); Bilirubin,Total 1.0 mg/dL (0.3-1.2); Blood Urea Nitrogen 11 mg/dL (9-23); Calcium 10.2 mg/dL (8.3-10.6); Calcium (Corrected) 10.2 mg/dL (8.5-10.1); Carbon Dioxide 28.3 mMol/L (20.0-31.0); Chloride 101 mMol/L (98-107); Creatinine (Component) 0.7 mg/dL (0.6-1.3); Free T4 (Free Thyroxine) 1.39 ng/dL (0.89-1.76); Globulin 1.9 gm/dL (2.3-3.5); Glucose 98 mg/dL (74-106); Osmolality,Calculated 276 (275-295); Potassium 4.2 mMol/L (3.4-5.1); Sodium 139 mMol/L (136-145); Thyroid Stimulating Hormone 0.52 uIU/mL (0.55-4.78); Total Protein 6.3 gm/dL (5.7-8.2); eGFR > 60 See Note
== END | disposition home or self-care (01) ==
PROVIDERS: PCP Physician Assistant; Referring Provider Physician Assistant; Visit Provider Physician Assistant
DX: R53.83 Other fatigue (principal)
CPT/HCPCS: 36415; 80053; 84439; 84443; 85025

== ENCOUNTER 2025-01-31 09:28 | Outpatient (RCR) | payer MEDICARE, BC, SELFPAY | END 2025-02-14 23:59 | disposition home or self-care (01) | LOC: SCTC 09:28 | PROVIDERS: PCP Physician Assistant; Referring Provider Physician Assistant; Visit Provider Radiology Therapeutic Radiology | DX: C34.32 Malignant neoplasm of lower lobe, left bronchus or lung (principal); C79.31 Secondary malignant neoplasm of brain | CPT/HCPCS: 99212; G0463 ==

== ENCOUNTER → 2025-02-21 | Outpatient (CLI) | payer MEDICARE, BC, SELFPAY ==
[2025-02-21 13:38] LABS: Basophils # (Auto) 0.0 Thou/mm3 (0.0-0.2); Basophils % (Auto) 1 % (0-2.5); Eosinophils # (Auto) 0.1 Thou/mm3 (0.0-0.5); Eosinophils % (Auto) 2 % (0-10); Hematocrit 39.0 % (36.0-46.0); Hemoglobin 13.0 g/dL (12.0-16.0); Immature Granulocytes Auto 0.02 Thou/mm3 (0.00-0.00); Lymphocytes # (Auto) 1.0 Thou/mm3 (1.0-4.8); Lymphocytes % (Auto) 17 % (10-50); Mean Corpuscular HGB Conc 33.3 g/dl (31.0-37.0); Mean Corpuscular Hemoglobin 31.8 pg (25.0-35.0); Mean Corpuscular Volume 95 fL (80-100); Monocytes # (Auto) 0.7 Thou/mm3 (0.0-0.8); Monocytes % (Auto) 12 % (0-12); Neutrophils # (Auto) 4.1 Thou/mm3 (1.8-7.7); Neutrophils % (Auto) 68 % (37-80); Nucleated Red Blood Cell # 0.00 Thou/mm3 (0.00-0.00); Nucleated Red Blood Cell % 0 /100 WBC (0); Platelet Count 397 Thou/mm3 (140-440); RDW Standard Deviation 43.7 fL (36.4-46.3); Red Blood Count 4.09 Miln/mm3 (4.00-5.20); White Blood Count 5.9 Thou/mm3 (3.6-11.0)
[2025-02-21 14:04] LABS: Alanine Aminotransferase 9 U/L (10-49); Albumin, Serum 4.6 gm/dL (3.4-4.8); Albumin/Globulin Ratio 3.3 (1.2-2.2); Alkaline Phosphatase 59 U/L (46-116); Anion Gap 9 (7-16); Aspartate Amino Transferase 17 U/L (0-34); BUN/Creatinine Ratio 16 Ratio (12-20); Bilirubin,Total 0.9 mg/dL (0.3-1.2); Blood Urea Nitrogen 13 mg/dL (9-23); Calcium 9.1 mg/dL (8.3-10.6); Calcium (Corrected) 9.1 mg/dL (8.5-10.1); Carbon Dioxide 28.4 mMol/L (20.0-31.0); Chloride 102 mMol/L (98-107); Creatinine (Component) 0.8 mg/dL (0.6-1.3); Free T4 (Free Thyroxine) 1.49 ng/dL (0.89-1.76); Globulin 1.4 gm/dL (2.3-3.5); Glucose 108 mg/dL (74-106); Osmolality,Calculated 278 (275-295); Potassium 4.9 mMol/L (3.4-5.1); Sodium 139 mMol/L (136-145); Thyroid Stimulating Hormone 0.29 uIU/mL (0.55-4.78); Total Protein 6.0 gm/dL (5.7-8.2); eGFR > 60 See Note
== END | disposition home or self-care (01) ==
LOC: SCTO 11:45
PROVIDERS: PCP Physician Assistant; Referring Provider Internal Medicine Hematology & Oncology; Visit Provider Internal Medicine Hematology & Oncology
DX: C79.31 Secondary malignant neoplasm of brain (principal)
CPT/HCPCS: 36415; 80053; 84439; 84443; 85025

== ENCOUNTER → 2025-03-04 | Outpatient (CLI) | payer MEDICARE, BC, SELFPAY ==
[2025-03-04 13:26] LABS: Basophils # (Auto) 0.0 Thou/mm3 (0.0-0.2); Basophils % (Auto) 1 % (0-2.5); Eosinophils # (Auto) 0.1 Thou/mm3 (0.0-0.5); Eosinophils % (Auto) 2 % (0-10); Hematocrit 40.4 % (36.0-46.0); Hemoglobin 13.6 g/dL (12.0-16.0); Immature Granulocytes Auto 0.01 Thou/mm3 (0.00-0.00); Lymphocytes # (Auto) 1.0 Thou/mm3 (1.0-4.8); Lymphocytes % (Auto) 18 % (10-50); Mean Corpuscular HGB Conc 33.7 g/dl (31.0-37.0); Mean Corpuscular Hemoglobin 31.9 pg (25.0-35.0); Mean Corpuscular Volume 95 fL (80-100); Monocytes # (Auto) 0.8 Thou/mm3 (0.0-0.8); Monocytes % (Auto) 15 % (0-12); Neutrophils # (Auto) 3.6 Thou/mm3 (1.8-7.7); Neutrophils % (Auto) 65 % (37-80); Nucleated Red Blood Cell # 0.00 Thou/mm3 (0.00-0.00); Nucleated Red Blood Cell % 0 /100 WBC (0); Platelet Count 324 Thou/mm3 (140-440); RDW Standard Deviation 43.3 fL (36.4-46.3); Red Blood Count 4.26 Miln/mm3 (4.00-5.20); White Blood Count 5.6 Thou/mm3 (3.6-11.0)
[2025-03-04 13:42] LABS: Alanine Aminotransferase 10 U/L (10-49); Albumin, Serum 4.7 gm/dL (3.4-4.8); Albumin/Globulin Ratio 3.4 (1.2-2.2); Alkaline Phosphatase 60 U/L (46-116); Anion Gap 9 (7-16); Aspartate Amino Transferase 17 U/L (0-34); BUN/Creatinine Ratio 19 Ratio (12-20); Bilirubin,Total 0.9 mg/dL (0.3-1.2); Blood Urea Nitrogen 13 mg/dL (9-23); Calcium 9.1 mg/dL (8.3-10.6); Calcium (Corrected) 9.1 mg/dL (8.5-10.1); Carbon Dioxide 28.3 mMol/L (20.0-31.0); Chloride 102 mMol/L (98-107); Creatinine (Component) 0.7 mg/dL (0.6-1.3); Globulin 1.4 gm/dL (2.3-3.5); Glucose 94 mg/dL (74-106); Osmolality,Calculated 277 (275-295); Potassium 4.4 mMol/L (3.4-5.1); Sodium 139 mMol/L (136-145); Total Protein 6.1 gm/dL (5.7-8.2); eGFR > 60 See Note
== END | disposition home or self-care (01) ==
LOC: SCTO 12:39
PROVIDERS: PCP Physician Assistant; Referring Provider Internal Medicine Hematology & Oncology; Visit Provider Internal Medicine Hematology & Oncology
DX: C79.31 Secondary malignant neoplasm of brain (principal); C34.32 Malignant neoplasm of lower lobe, left bronchus or lung
CPT/HCPCS: 36415; 80053; 85025

== ENCOUNTER 2025-03-05 15:43 | Outpatient (RCR) | payer MEDICARE, BC, SELFPAY ==
--- NOTE | 2025-03-10 00:18 | CTCFLWUP_ITS ---
Patient: JENNY VILLALBA : 1940 Page 3 of 5 FOLLOW UP NOTE DATE OF SERVICE: 03/05/2025 NAME: JENNY VILLALBA ACCOUNT: [id number] : 1940 AGE: 84 INTERVAL HISTORY: Patient received her immunotherapy only. Patient was planned to start Pembro Alimta and carboplatin but patient started to agree only on immunotherapy. Patient received immunotherapy with Keytruda and had no side effects. Patient at baseline needed assistance from her as have memory loss for last 5 years. Patient otherwise is independent of her ADLs. 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 Patient will be a candidate for fam-trastuzumab that extent in second line other drugs are TDM 1 Herceptin Herceptin plus Perjeta and neratinib TREATMENT HISTORY: Care?Plan Start?Date Cycle Day Intent Pembro?Abraxane?and?carboplatin?Keynote?355 11/18/2024 1 21 Induction-Primary NSC?Adeno?alimp?500?mg/m*2,?CARBO?5,?Keytruda 02/24/2025 1 21 Palliative HISTORY OF PRESENT ILLNESS: Subjective Chief Complaint Follow-up for lung cancer and brain metastases, memory decline since radiation treatment History of Present Illness Kayce ramsay, an 84-year-old female with a history of lung adenocarcinoma and brain metastases, presents for follow-up after completing radiation therapy. The patient recently finished whole-brain radiation on September 30, which has successfully decreased the size of the brain cancer lesions by half. However, since completing radiation, she has experienced a decline in memory function, which is noted as a common side effect, particularly in older patients. The patient's lung cancer is currently limited to one spot that appears to be cancerous. She has not smoked for over 45 years, and it is noted that her current lung cancer is not related to smoking. Despite her age, the patient maintains good overall health and engages in daily walks. She reports walking two miles a day, which takes her about 40 to 45 minutes, a routine she has maintained since 1983. The patient is currently taking Keppra for seizure management, which will be continued. She has been on steroids, which are now being tapered off. Despite the challenges of her diagnosis, the patient demonstrates good understanding of her condition and treatment plan. Medications and Supplements - Keppra - For seizures - Steroids - Being tapered off Review of Systems Neurological: Positive for memory decline. Objective Physical Examination General: Patient appears to be in good health for stated age of 83. Musculoskeletal: Patient is able to walk daily. 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 benazepril - 20 mg 1 tab Daily 2. dexamethasone - 4 mg 1 tab Twice a Day 3. Keppra - 500 mg 1 tab Twice a Day 4. ondansetron - 8 mg 1 tab Every 8 Hours Medications Last Reconciled by Nina Thompson MD on 03/05/2025 ALLERGIES: codeine sulfate REVIEW OF SYSTEMS: A complete 14-point review of systems was performed and is negative except as noted in interval history. PHYSICAL EXAMINATION: VITAL SIGNS: Temperature?99.1, B/P?138/88, Oxygen?Saturation?97% Weight?125?lbs (Change?since?02/24/25:?-0.8?lbs) PAIN: 0 - No pain ECOG Performance Status: 0 - Asymptomatic and fully active GENERAL APPEARANCE: Appears well, in no apparent distress, appropriately interactive. HEENT: Normocephalic, no temporal wasting, normal conjunctiva, no scleral icterus, normal hearing, lips without lesions, neck normal range of motion. CARDIOVASCULAR: Not assessed. PULMONARY: Normal respiratory effort, no respiratory distress or use of accessory muscles, speaking in full sentences, no tachypnea. EXTREMITIES: No pedal edema or cyanosis. SKIN: Normal skin appearance. NEUROLOGIC: Alert and oriented to herself name and place PSHYCHIATRIC: Appropriate affect, mood normal, behavior normal, intact thought and speech. LABORATORY DATA: I have personally reviewed and interpreted each of the patient?s relevant lab tests, abnormal findings are below: Date 02/21/25 03/04/25 ??WHITE?BLOOD?COUNT?(Thou/mm3) 5.9 5.6 ??RED?BLOOD?COUNT?(Miln/mm3) 4.09 4.26 ??HEMOGLOBIN?(gm/dl) 13.0 13.6 ??HEMATOCRIT?(%) 39.0 40.4 ??PLATELET?COUNT?(Thou/mm3) 397 324 ??NEUTROPHILS?%,?AUTO?(%) 68 65 ??LYMPH?%,?AUTO?(%) 17 18 ??NEUTROPHILS,?AUTO?(Thou/mm3) 4.1 3.6 ??GLUCOSE,RANDOM?(mg/dL) 108?H 94 ??BLOOD?UREA?NITROGEN?(mg/dL) 13 13 ??CREATININE?(mg/dL) 0.80 0.70 ??SODIUM?(mmol/L) 139 139 ??POTASSIUM?(mmol/L) 4.9 4.4 ??CHLORIDE?(mmol/L) 102 102 ??CrCl?(CandG)?(ml/min) 48.30 54.85 ??AST/SGOT?(Unit/L) 17 17 ??ALT/SGPT?(Unit/L) 9?L 10 ??ALKALINE?PHOSPHATASE?(Unit/L) 59 60 ??BILIRUBIN,?TOTAL?(mg/dL) 0.9 0.9 ??PROTEIN?TOTAL?(gm/dl) 6.0 6.1 ??ALBUMIN,?SERUM?(gm/dl) 4.6 4.7 ??GLOBULIN?(gm/dl) 1.4?L 1.4?L ??ALBUMIN/GLOBULIN?RATIO 3.3?H 3.4?H ??CALCIUM,?SERUM?(mg/dL) 9.1 9.1 ??CALCIUM?SERUM?(CORRECTED)?(mg/dL) 9.1 9.1 ASSESSMENT/PLAN: Patient has lung adenocarcinoma with brain metastases. Recent radiation therapy to the brain has been effective, reducing the size of cancer lesions by half. PET scan and MRI performed on Monday and Monday, respectively, confirmed the reduction in brain tumor size and revealed only one cancerous spot remaining in the lung. No mutations were found in the cancer. Patient and her want to continue immunotherapy for now Will continue Keytruda Discussed starting Alimta at the next dose with 50% dose reduction Patient and would like to continue Keytruda only at this time ORDERS: Order # Description [id number] CT Scan + Chest + Abdomen and Pelvis + With Contrast [id number] Vitamin B-12 + Ferritin + Folic Acid; Serum + Iron Panel [id number] RETURN TO CLINIC: I reviewed the diagnosis, prognosis, and recommended treatment/procedure options with the patient (and/or their legal door to door sales representative), including the potential benefits, risks, side effects and alternative therapies. We also discussed the option of no treatment and the possibility of clinical trial participation, if applicable. All questions were addressed, and they demonstrated understanding. They provided informed consent to proceed with the proposed plan of care. BILLING AND COMPLIANCE: I reviewed external records from providers outside my specialty as summarized above. I spent a total of 50 minutes on this patient?s care on the day of their visit excluding time spent related to any billed procedures. This time includes time spent with the patient as well as time spent documenting in the medical record, reviewing patients records and tests, obtaining history, placing orders, communicating with other healthcare professionals, counseling the patient, family or caregiver, and/or care coordination for the diagnoses above. Electronically Signed by: Sabas Manrique MD T: 12:16 AM CC: PCP: Referring: Nilda Goss This document was completed utilizing speech recognition software. Grammatical errors, random word insertions, pronoun errors, and incomplete sentences are an occasional consequence of this system due to software limitations, ambient noise, and hardware issues. Any formal questions or concerns about the content, text or information contained within the body of this dictation should be directly addressed to the provider for clarification.
== END 2025-03-16 23:59 | disposition home or self-care (01) ==
LOC: SCTC 15:43
PROVIDERS: PCP Physician Assistant; Referring Provider Physician Assistant; Visit Provider Internal Medicine Hematology & Oncology
DX: Z51.12 Encounter for antineoplastic immunotherapy (principal); C34.32 Malignant neoplasm of lower lobe, left bronchus or lung; C79.31 Secondary malignant neoplasm of brain
CPT/HCPCS: 96413; 99212; J3490; J9271; G0463

== ENCOUNTER → 2025-03-17 | Outpatient (CLI) | payer MEDICARE, BC, SELFPAY ==
[2025-03-17 12:11] LABS: Basophils # (Auto) 0.0 Thou/mm3 (0.0-0.2); Basophils % (Auto) 0 % (0-2.5); Eosinophils # (Auto) 0.1 Thou/mm3 (0.0-0.5); Eosinophils % (Auto) 1 % (0-10); Hematocrit 39.6 % (36.0-46.0); Hemoglobin 13.1 g/dL (12.0-16.0); Immature Granulocytes Auto 0.01 Thou/mm3 (0.00-0.00); Lymphocytes # (Auto) 0.8 Thou/mm3 (1.0-4.8); Lymphocytes % (Auto) 17 % (10-50); Mean Corpuscular HGB Conc 33.1 g/dl (31.0-37.0); Mean Corpuscular Hemoglobin 31.0 pg (25.0-35.0); Mean Corpuscular Volume 94 fL (80-100); Monocytes # (Auto) 0.6 Thou/mm3 (0.0-0.8); Monocytes % (Auto) 11 % (0-12); Neutrophils # (Auto) 3.4 Thou/mm3 (1.8-7.7); Neutrophils % (Auto) 70 % (37-80); Nucleated Red Blood Cell # 0.00 Thou/mm3 (0.00-0.00); Nucleated Red Blood Cell % 0 /100 WBC (0); Platelet Count 356 Thou/mm3 (140-440); RDW Standard Deviation 42.5 fL (36.4-46.3); Red Blood Count 4.23 Miln/mm3 (4.00-5.20); White Blood Count 4.9 Thou/mm3 (3.6-11.0)
[2025-03-17 12:27] LABS: Alanine Aminotransferase 11 U/L (10-49); Albumin, Serum 4.4 gm/dL (3.4-4.8); Albumin/Globulin Ratio 2.6 (1.2-2.2); Alkaline Phosphatase 54 U/L (46-116); Anion Gap 10 (7-16); Aspartate Amino Transferase 17 U/L (0-34); BUN/Creatinine Ratio 17 Ratio (12-20); Bilirubin,Total 1.0 mg/dL (0.3-1.2); Blood Urea Nitrogen 12 mg/dL (9-23); Calcium 8.7 mg/dL (8.3-10.6); Calcium (Corrected) 8.7 mg/dL (8.5-10.1); Carbon Dioxide 28.2 mMol/L (20.0-31.0); Chloride 99 mMol/L (98-107); Creatinine (Component) 0.7 mg/dL (0.6-1.3); Globulin 1.7 gm/dL (2.3-3.5); Glucose 97 mg/dL (74-106); Osmolality,Calculated 273 (275-295); Potassium 4.1 mMol/L (3.4-5.1); Sodium 137 mMol/L (136-145); Total Protein 6.1 gm/dL (5.7-8.2); eGFR > 60 See Note
[2025-03-17 12:30] LABS: Carcinoembryonic Antigen 64.8 ng/mL (0.0-5.0)
== END | disposition home or self-care (01) ==
PROVIDERS: PCP Family Medicine; Referring Provider Internal Medicine Hematology & Oncology; Visit Provider Internal Medicine Hematology & Oncology
DX: C79.31 Secondary malignant neoplasm of brain (principal); C34.32 Malignant neoplasm of lower lobe, left bronchus or lung
CPT/HCPCS: 36415; 80053; 82378; 85025

== ENCOUNTER → 2025-04-07 | Outpatient (CLI) | payer MEDICARE, BC, SELFPAY ==
[2025-04-07 15:13] LABS: Basophils # (Auto) 0.0 Thou/mm3 (0.0-0.2); Basophils % (Auto) 1 % (0-2.5); Eosinophils # (Auto) 0.0 Thou/mm3 (0.0-0.5); Eosinophils % (Auto) 0 % (0-10); Hematocrit 38.2 % (36.0-46.0); Hemoglobin 13.0 g/dL (12.0-16.0); Immature Granulocytes Auto 0.01 Thou/mm3 (0.00-0.00); Lymphocytes # (Auto) 0.7 Thou/mm3 (1.0-4.8); Lymphocytes % (Auto) 13 % (10-50); Mean Corpuscular HGB Conc 34.0 g/dl (31.0-37.0); Mean Corpuscular Hemoglobin 31.3 pg (25.0-35.0); Mean Corpuscular Volume 92 fL (80-100); Monocytes # (Auto) 0.5 Thou/mm3 (0.0-0.8); Monocytes % (Auto) 9 % (0-12); Neutrophils # (Auto) 4.4 Thou/mm3 (1.8-7.7); Neutrophils % (Auto) 77 % (37-80); Nucleated Red Blood Cell # 0.00 Thou/mm3 (0.00-0.00); Nucleated Red Blood Cell % 0 /100 WBC (0); Platelet Count 321 Thou/mm3 (140-440); RDW Standard Deviation 42.0 fL (36.4-46.3); Red Blood Count 4.16 Miln/mm3 (4.00-5.20); White Blood Count 5.7 Thou/mm3 (3.6-11.0)
[2025-04-07 15:27] LABS: Carcinoembryonic Antigen 65.9 ng/mL (0.0-5.0)
[2025-04-07 15:37] LABS: Alanine Aminotransferase 7 U/L (10-49); Albumin, Serum 4.5 gm/dL (3.4-4.8); Albumin/Globulin Ratio 2.3 (1.2-2.2); Alkaline Phosphatase 54 U/L (46-116); Anion Gap 8 (7-16); Aspartate Amino Transferase 15 U/L (0-34); BUN/Creatinine Ratio 16 Ratio (12-20); Bilirubin,Total 1.0 mg/dL (0.3-1.2); Blood Urea Nitrogen 11 mg/dL (9-23); Calcium 9.0 mg/dL (8.3-10.6); Calcium (Corrected) 9.0 mg/dL (8.5-10.1); Carbon Dioxide 25.6 mMol/L (20.0-31.0); Chloride 103 mMol/L (98-107); Creatinine (Component) 0.7 mg/dL (0.6-1.3); Free T4 (Free Thyroxine) 1.50 ng/dL (0.89-1.76); Globulin 2.0 gm/dL (2.3-3.5); Glucose 110 mg/dL (74-106); Osmolality,Calculated 274 (275-295); Potassium 4.2 mMol/L (3.4-5.1); Sodium 137 mMol/L (136-145); Thyroid Stimulating Hormone 0.56 uIU/mL (0.55-4.78); Total Protein 6.5 gm/dL (5.7-8.2); eGFR > 60 See Note
== END | disposition home or self-care (01) ==
LOC: SCTO 14:20
PROVIDERS: PCP Internal Medicine; Referring Provider Internal Medicine Hematology & Oncology; Visit Provider Internal Medicine Hematology & Oncology
DX: C79.31 Secondary malignant neoplasm of brain (principal); R97.0 Elevated carcinoembryonic antigen [CEA]; E03.9 Hypothyroidism, unspecified
CPT/HCPCS: 36415; 80053; 82378; 84439; 84443; 85025

== ENCOUNTER 2025-04-08 10:27 | Outpatient (RCR) | payer MEDICARE, BC, SELFPAY ==
[2025-03-17 15:53] LABS: Free T4 (Free Thyroxine) 1.47 ng/dL (0.89-1.76); Thyroid Stimulating Hormone 0.41 uIU/mL (0.55-4.78)
== END 2025-04-16 23:59 | disposition home or self-care (01) ==
LOC: SCTC 10:27
PROVIDERS: PCP Physician Assistant; Referring Provider Physician Assistant; Visit Provider Internal Medicine Hematology & Oncology
DX: Z51.12 Encounter for antineoplastic immunotherapy (principal); C79.31 Secondary malignant neoplasm of brain; C34.32 Malignant neoplasm of lower lobe, left bronchus or lung
CPT/HCPCS: 84439; 84443; 96413; J3490; J7030; J9271